=== PATIENT | female | born 1965 | race Caucasian/White ===

== ENCOUNTER 2018-05-21 18:58 | Inpatient (IN) ==
--- NOTE | 2018-05-21 19:32 | Emergency Department Note ---
ED Disposition Clinical Impression: Abscess of left foot, Anemia of chronic disease Rheumatoid arthritis Qualifiers: Rheumatoid arthritis location: unspecified site Rheumatoid factor presence: unspecified presence Qualified Code(s): M06.9 - Rheumatoid arthritis, unspecified Cellulitis Qualifiers: Site of cellulitis: unspecified site Qualified Code(s): L03.90 - Cellulitis, unspecified Decubitus ulcer Qualifiers: Pressure injury location: other site Pressure injury stage: stage 1 Qualified Code(s): L89.891 - Pressure ulcer of other site, stage 1 Disposition: Admitted As Inpatient Condition on Discharge: Fair Time of Disposition: 19:32 - Critical Care Critical Care Time: Yes Attestation: On , the high probability of a clinically significant, sudden or life threatening deterioration of the following system(s) required my full and direct attention, intervention and personal management. The time I documented below is in addition to time spent performing reported procedures but includes the following listed in this critical care notation. Total Critical Care Time: 90 Vital system(s) involved:: Metabolic Failure My critical care processes included: Assessment & monitoring of V/S, Initial and Re-exams, Data Review/Interpretation, Coordinating Care, Medication Orders and management, Documentation Medical Decision Making - Medical Records Medical records reviewed: Yes: I reviewed the patient's medical records. - Jimmy Inquiry Pt receiving controlled substance: No Vital Signs: 05/21/18 18:59 05/21/18 20:29 05/21/18 21:13 Temperature 98.4 F Temperature Source Oral Pulse Rate Pulse Rate [Right Radial] 90 99 H 104 H Respiratory Rate 14 15 18 Blood Pressure Blood Pressure [Right Arm] 115/70 124/103 131/54 Blood Pressure Mean [Right Arm] 85 110 79 Blood Pressure Source Blood Pressure Source [Right Arm] Automatic Cuff Automatic Cuff Automatic Cuff Blood Pressure Position Blood Pressure Position [Right Arm] Sitting Sitting Sitting 02 Sat by Pulse Oximetry 100 98 99 Oxygen Delivery Method Room Air 05/21/18 21:42 Temperature 98.7 F Temperature Source Oral Pulse Rate 103 H Pulse Rate [Right Radial] Respiratory Rate 16 Blood Pressure 128/79 Blood Pressure [Right Arm] Blood Pressure Mean [Right Arm] Blood Pressure Source Automatic Cuff Blood Pressure Source [Right Arm] Blood Pressure Position Sitting Blood Pressure Position [Right Arm] 02 Sat by Pulse Oximetry Oxygen Delivery Method Room Air - Lab Data Lab results reviewed: Yes: I reviewed the patient's lab results. Lab Results 05/21/18 19:15: WBC 4.7 L, RBC 3.81 L, Hgb 9.5 L, Hct 30.5 L, MCV 80.1 L, MCH 25.0 L, MCHC 31.2 L, RDW 16.1, Plt Count 236, MPV 7.3 L, Neut % (Auto) 81.9 H, Lymph % (Auto) 12.3, [place] % (Auto) 3.2, Eos % (Auto) 2.6, Baso % (Auto) 0.1, Neut # (Auto) 3.9, Lymph # (Auto) 0.6 L, [place] # (Auto) 0.2, Eos # (Auto) 0.1, Baso # (Auto) 0.0 05/21/18 19:15: Sodium 139, Potassium 4.4, Chloride 104, Carbon Dioxide 31, Anion Gap 8.4, BUN 13, Creatinine 0.70, Estimated Creat Clear 104, Estimated GFR 89, Est GFR ( Amer) 107, Glucose 113 H, Calcium 9.0, Total Bilirubin 0.4, AST 20, ALT 17, Alkaline Phosphatase 120 H, Troponin I < 0.02, C-Reactive Protein 32.2 H, Total Protein 7.2, Albumin 2.0 L, Globulin 5.2 H, Albumin/ Globulin Ratio 0.4 L, Amylase 17 L, Lipase 50 L, TSH 0.94, Free T4 1.45 05/21/18 19:15: Lactic Acid 1.1 05/21/18 19:15: B-Natriuretic Peptide 265 H 05/21/18 19:15: ESR > 120 H 05/21/18 19:50: Urine Color Yellow, Urine Appearance Clear, Urine pH 6.0, Ur Specific [place] 1.015, Urine Protein Negative, Urine Glucose (UA) Negative, Urine Ketones Negative, Urine Blood 1+, Urine Nitrate Negative, Urine Bilirubin Negative, Urine Urobilinogen 0.2, Ur Leukocyte Esterase 1+ A, Urine RBC 3-5, Urine WBC 3-5, Ur Squamous Epith Cells 3-5, Amorphous Sediment Trace Result diagrams: 05/21/18 19:15 05/21/18 19:15 Orders (Tests/Meds): ED MEDICATIONS Generic Name Dose Route Start Last Admin Trade Name Freq PRN Reason Stop Dose Admin Hydrocodone Bitart/Acetaminophen 1 tab 05/22/18 04:16 05/22/18 04:10 Childs 5/325mg Tablet PO 06/21/18 04:15 1 tab Q6HP PRN Administration Moderate Pain Cyclobenzaprine HCl 10 mg 05/21/18 21:44 05/21/18 23:50 Flexeril 10mg Tablet PO 06/20/18 21:43 10 mg NEEDED PRN Administration Muscle Pain Lisinopril/HCTZ 1 each 05/22/18 09:00 Zestoretic 10/12.5mg Tablet PO 06/21/18 08:59 DAILY DAVID Clindamycin Phosphate 900 mg/ 106 mls @ 100 mls/hr 05/22/18 01:45 05/22/18 01 :21 Sodium Chloride IV 06/04/18 19:44 100 mls/hr Q6H DAVID Administration Protocol Vancomycin HCl 2,500 mg/ 500 mls @ 160 mls/hr 05/22/18 05:00 05/22/18 05:02 Sodium Chloride IV 06/04/18 20:59 160 mls/hr Q8 DAVID Administration Lactated Ringer's 1,000 mls @ 75 mls/hr 05/21/18 21:45 05/21/18 23:49 Lactated Ringer's 1000 Ml Bag IV 06/20/18 21:44 75 mls/hr .[id number] DAVID Administration Miscellaneous 1 each 05/21/18 21:44 05/21/18 22:46 Vancomycin Consult Request * 06/20/18 19:44 Not Given CONSULT PHARMACY DAVID Non-Formulary Medication 150 mg 05/22/18 09:00 Bupropion Hcl [Bupropion Hcl Sr] PO 06/21/18 08:59 DAILY DAVID Non-Formulary Medication 80 mg 05/22/18 09:00 Fluoxetine Hcl [Prozac] PO 06/21/18 08:59 DAILY DAVID Non-Formulary Medication 1,600 mg 05/22/18 21:00 Gabapentin [Gabapentin 800mg Tab] PO 06/21/18 20:59 HS DAVID Sodium Chloride 10 ml 05/21/18 21:44 Saline Flush 10ml Syringe IV 06/20/18 21:43 NEEDED PRN Maintain IV Site Discontinued Medications Generic Name Dose Route Start Last Admin Trade Name Freq PRN Reason Stop Dose Admin Clindamycin Phosphate 900 mg/ 106 mls @ 100 mls/hr 05/21/18 19:45 05/21/18 20 :35 Sodium Chloride IV 06/04/18 19:44 100 mls/hr Q6H DAVID Administration Protocol Vancomycin HCl 2,500 mg/ 500 mls @ 250 mls/hr 05/21/18 21:00 05/21/18 20:43 Sodium Chloride IV 06/04/18 20:59 Not Given Q8 DAVID Protocol Vancomycin HCl 2,500 mg/ 500 mls @ 160 mls/hr 05/21/18 21:00 05/21/18 21:21 Sodium Chloride IV 06/04/18 20:59 160 mls/hr Q8 DAVID Administration Miscellaneous 1 each 05/21/18 19:45 05/21/18 20:35 Vancomycin Consult Request * 06/20/18 19:44 1 each CONSULT PHARMACY DAVID Administration ORDERS Category Date Time Status Blood Culture Stat Micro 05/21/18 19:15 Received Urine Culture Stat Micro 05/21/18 19:50 Received - Physician Consults Physician Consulted: Dr Gipson Time: 19:20 Reason -: Admission, Pt condition Comment/Response: The ultrasound was advised of patient's presentation, findings , she is agreeable with podiatry consultation, would like patient to be on double antibiotic coverage, agreeable with IV vancomycin and IV clindamycin, but also would like left heel x-ray and left lower extremity MRI in the morning. - Reevaluation(s) Time: 19:30 Reevaluation #1: Upon reevaluation patient appears medically stable, advised of results obtained as well as need to hospitalize her in order to initiate IV antibiotics. Patient is clearly having a flareup of her rheumatoid arthritis, given the inflammatory indices, as both CRP and ESR are elevated. Plan is to discontinue the methotrexate, and immunosuppressant, at this time, in order to allow patient to receive IV antibiotics and improve, while off methotrexate. After infectious process is under control the plan is to then attempt to control the rheumatoid arthritis as well, and restart patient on methotrexate. Consideration needs to be given to possible biological agent such as Enbrel, Simponi, Humira, etc. General Adult HPI - General Chief complaint: Weakness Stated complaint: weakness Time Seen by Provider: 05/21/18 19:20 Mode of Arrival: EMS Source of Information: Patient Limitations: No Limitations Description of Symptoms (Recalled from ER Triage Doc. by RN): pt with non- healing leg wounds, edema, complains of general weakness x 2 weeks, worse for 3 days, - History of Present Illness HPI narrative: This is a 52-year-old female patient presented to emergency room with gradual decline, generalized weakness over the past 3 weeks, being unable to get out of bed for the past 4 days due to extreme weakness, also a sore on her left heel, redness on the lower extremities and multiple other sores starting on her low back. Patient is known with rheumatoid arthritis, has been on methotrexate for a long time. Patient has any fever, and chills. Onset (ago): week(s) (3) Location: lower extremity (bilateral) Radiation: non-radiation Severity: moderate Severity scale (1-10): 4 Quality: aching Consistency: intermittent Relieving factors: rest Exacerbating factors: movement Associated symptoms: denies other symptoms Treatments prior to arrival: none - Related Data Home Medications Medication Instructions Recorded Confirmed Cyclobenzaprine HCl 10 mg PO NEEDED PRN 05/21/18 05/21/18 [Cyclobenzaprine 10mg Tab] Fluoxetine HCl [Prozac] 80 mg PO DAILY 05/21/18 05/21/18 Gabapentin [Gabapentin 800mg Tab] 1,600 mg PO HS 05/21/18 05/21/18 Lisinopril/Hydrochlorothiazide 1 tab PO DAILY 05/21/18 05/21/18 [Lisinopril-Hctz 10-12.5 mg Tab] Methotrexate Sodium/Pf 50 mg IJ WEEKLY 05/21/18 05/21/18 [Methotrexate 50 mg/2 ml Vial] buPROPion HCl [Bupropion HCl Sr] 150 mg PO DAILY 05/21/18 05/21/18 Allergies Allergy/AdvReac Type Severity Reaction Status Date / Time No Known Allergies Allergy Unverified 10/25/17 14:19 [facility] History I have reviewed the patient's past medical history: Yes Medical History: Denies:: Cancer, Diabetes Mellitus Type 1, Diabetes Mellitus Type 2, MRSA Other Medical History: Reports: Other (Rheumatoid arthritis) Amputation: No Fractures: No - Social History Smoking Status: Current every day smoker Tobacco Type: cigarettes # Packs/Day (cigarettes): 1 Alcohol Intake: never - Psychiatric History Expresses thoughts of harming self/others: None Suicide Plan Description: No Plan ROS Obtained: Yes All systems reviewed & no additional complaints - Integumentary/Breasts Skin/Breast: Reports system reviewed and no additional complaints, except as docu, Reports as per HPI, Reports lesions, Reports rash Physical Exam - General General appearance: alert, in distress (moderate) - Head Head exam: atraumatic, normocephalic, normal inspection - Neck Neck exam: Absent: meningismus, lymphadenopathy - Chest Chest inspection: Present: normal inspection, symmetric chest wall rise. Absent : tenderness - Respiratory Respiratory exam: Present: normal lung sounds bilaterally. Absent: respiratory distress - Cardiovascular Cardiovascular exam: Present: regular rate, normal rhythm. Absent: JVD - Abdominal Exam Abdominal exam: Present: soft, normal bowel sounds. Absent: distention, tenderness, guarding - Expanded Lower Extremity Exam Left Lower leg exam: Present: tenderness, swelling, erythema Foot/toe exam: Present: tenderness (left heel), swelling (left heel), erythema ( left heel), calcaneal tenderness (left) Right Lower leg exam: Present: tenderness, swelling, erythema - Back Exam Back exam: Present: normal inspection. Absent: tenderness - Neurological Exam Neurological exam: Present: alert, oriented X3, CN II-XII intact - Psychiatric Psychiatric exam: Present: depressed, anxious, flat affect - Skin Skin exam: Present: warm, dry, normal color, rash (Presacral rash, consistent with decubitus ulcers, bilateral lower extremities erythema, warmth consistent with cellulitis, left heel soft tissue swelling, with area of central fluctuance consistent with an abscess) - Lymphatic Lymphatic Findings: no adenopathy
[2018-05-21 20:00] LABS: Basophils % 0.1 % (0.1-2.0); Eosinophils # 0.1 K/mm3 (0.0-0.4); Eosinophils % 2.6 % (0.1-12.0); Hematocrit 30.5 % (37.0-47.0); Hemoglobin 9.5 g/dL (12.2-16.2); Lymphocytes # 0.6 K/mm3 (0.7-4.5); Lymphocytes % 12.3 K/mm3 (10-50); Mean Corpuscular HGB Conc 31.2 g/dL (31.8-35.4); Mean Corpuscular Volume 80.1 fl (81-99); Mean Platelet Volume 7.3 fl (7.4-10.4); Monocytes # 0.2 K/mm3 (0.1-1.0); Monocytes % 3.2 % (1.7-9.3); Neutrophils # 3.9 K/mm3 (1.8-7.8); Neutrophils % 81.9 % (37.0-80.0); Platelet Count 236 K/mm3 (142-424); Red Blood Count 3.81 M/mm3 (4.20-5.40); Red Cell Distribution Width 16.1 % (11.5-17.5); White Blood Count 4.7 K/mm3 (4.8-10.8)
[2018-05-21 20:04] LABS: Microscopic, Urine URINE MICROSCOPIC (MICROSCOPIC)
[2018-05-21 20:05] LABS: Appearance,Urine CLEAR (Clear); Bilirubin,Urine Negative (Negative); Blood, Urine 1+ (Negative); Color,Urine YELLOW (Yellow); Glucose,Urine (UA) Negative (Negative); Ketones,Urine Negative (Negative); Leukocyte Esterase,Urine 1+ (Negative); Protein,Urine Negative (Negative); Specific Gravity, Urine 1.015 (1.005-1.030); Urobilinogen,Urine 0.2 EU/dl (0.2)
[2018-05-21 20:07] LABS: Amorphous Sediment,Urine Trace /lpf
[2018-05-21 20:20] LABS: Alanine Aminotransferase 17 U/L (12-78); Albumin/Globulin Ratio 0.4 (1.1-1.8); Alkaline Phosphatase 120 U/L (46-116); Amylase 17 U/L (25-125); Anion Gap 8.4 mEq/L (5-15); Aspartate Amino Transferase 20 U/L (15-37); Bilirubin,Total 0.4 mg/dL (0.2-1.0); Blood Urea Nitrogen 13 mg/dL (7-18); Carbon Dioxide 31 mmol/L (21.0-32.0); Chloride 104 mmol/L (98-107); Free T4 (Free Thyroxine) 1.45 ng/dl (0.76-1.46); Globulin 5.2 gm/dl (1.3-3.2); Glucose 113 mg/dL (74-106); Lipase 50 u/L (73-393); Potassium 4.4 mmoL/L (3.5-5.1); Sodium 139 mmol/L (136-145); Thyroid Stimulating Hormone 0.94 uIU/ml (0.358-3.740); Total Protein,Serum 7.2 gm/dL (6.4-8.2)
[2018-05-21 20:21] LABS: C-Reactive Protein 32.2 mg/L (0.0-0.9)
--- NOTE | 2018-05-22 08:40 | Pharmacy Consult Notes ---
[facility] Pharmacy VTE Monitoring - Patient Demographics Admission date: 05/21/18 Report Date: 05/22/18 Time: 08:40 Allergies/Adverse Reactions: Patient Allergies No Known Allergies Allergy (Unverified 10/25/17 14:19) Height: 1.78 m Weight: 163.293 kg Patient Problems: Current Active Problems Rheumatoid arthritis (Acute) Abscess of left foot (Acute) Cellulitis (Acute) Decubitus ulcer (Acute) Anemia of chronic disease (Acute) - VTE Risk Labs: VTE Related Lab Results Hgb 9.5 g/dL (12.2-16.2) L 05/21/18 19:15 Hct 30.5 % (37.0-47.0) L 05/21/18 19:15 Plt Count 236 K/mm3 (142-424) 05/21/18 19:15 BUN 13 mg/dL (7-18) 05/21/18 19:15 Creatinine 0.70 mg/dL (0.55-1.02) 05/21/18 19:15 Estimated Creat Clear 104 mL/min (0-300) 05/21/18 19:15 Was VTE Risk Assessment Performed: Yes VTE Score: 3 VTE Risk Level: Low Risk - Prophylaxis VTE Prophylaxis Ordered?: Yes Types of VTE Prophylaxis: TEDS Knee High Location of Applied Device: Bilateral Lower Extremeties - VTE Diagnosis Confirmed Treatment or plan recommended: Continue Current Treatment
--- NOTE | 2018-05-22 09:22 | Consult Report ---
*Admission Date: 05/21/18 *Chief complaint: B/L HEEL PAIN, ABSCESS *History of present illness: Ms. Gómez is a 52 y/o obese female patient who presented to ED with gradual decline, generalized weakness over the past 3 weeks, being unable to get out of bed for the past 4 days due to extreme weakness. She also c /o a sore on her left heel, redness on the lower extremities and multiple other sores starting on her low back. She reports pain to both heels, left worse than the right. Patient reports left leg ulcer healed in past, but reopened. Patient is known with rheumatoid arthritis, has been on methotrexate. Patient reports chills on and off x 2-3 days. She denies N/V, SOB/CP. Patient is laying in bed and has not walker > 3 weeks. Review of Systems - Review of Systems Review of systems:: unable to obtain - Constitutional Reports anorexia, Reports fatigue, Reports weakness - Eyes Denies change in vision - ENT Denies change in voice - *Cardiovascular Reports leg sores, Reports fast heart rate, Denies chest pain - *Respiratory Denies cough, Denies wheezing - *Gastrointestinal Denies abdominal pain, Denies vomiting - *Genitourinary Denies abnormal periods - *Musculoskeletal Reports back pain, Reports muscle weakness - Integumentary/Breasts Reports skin ulcer (left lateral leg, decubitus) - *Neurologic Reports weakness, Denies behavioral changes, Denies tingling/numbness/burning sensations - Hematologic/Lymphatic Reports easy bruising - Allergic/Immunologic Denies wheezing [facility] History I have reviewed the patient's past medical history: Yes Medical History: Reports:: Hypertension Denies:: Cancer, Diabetes Mellitus Type 1, Diabetes Mellitus Type 2, MRSA, Peripheral Artery Disease Other Medical History: Reports: Other (Rheumatoid Arthritis) Laterality Cases: Left: Arthroscopy Knee Other Surgeries: Yes: Tubal Ligation Amputation: No Fractures: No - *Social History Educational Level: Completed High School Smoking Status: Current every day smoker Tobacco Type: cigarettes # Packs/Day (cigarettes): 1 #Yrs smoked (if former smoker): 30 Alcohol Intake: never Occupational Status: disabled Housing: house Household Members: spouse - Psychiatric History Expresses thoughts of harming self/others: None Suicide Plan Description: No Plan *Family Hx:: Cancer, Coronary Artery Disease, Diabetes Meds Home Medications Medication Instructions Recorded Confirmed Type Cyclobenzaprine HCl 10 mg PO NEEDED PRN 05/21/18 05/21/18 History [Cyclobenzaprine 10mg Tab] Fluoxetine HCl [Prozac] 80 mg PO DAILY 05/21/18 05/21/18 History Gabapentin [Gabapentin 800mg Tab] 1,600 mg PO HS 05/21/18 05/21/18 History Lisinopril/Hydrochlorothiazide 1 tab PO DAILY 05/21/18 05/21/18 History [Lisinopril-Hctz 10-12.5 mg Tab] Methotrexate Sodium/Pf 50 mg IJ WEEKLY 05/21/18 05/21/18 History [Methotrexate 50 mg/2 ml Vial] buPROPion HCl [Bupropion HCl Sr] 150 mg PO DAILY 05/21/18 05/21/18 History Allergies Allergy/AdvReac Type Severity Reaction Status Date / Time No Known Allergies Allergy Unverified 10/25/17 14:19 Exam Vital signs and Labs for Last 24 Hours: Temp Pulse Resp BP Pulse Ox 98.5 F 93 H 22 120/56 99 05/22/18 07:24 05/22/18 07:24 05/22/18 07:24 05/22/18 07:24 05/22/18 07:24 Laboratory Results - last 24 hr 05/21/18 19:15: WBC 4.7 L, RBC 3.81 L, Hgb 9.5 L, Hct 30.5 L, MCV 80.1 L, MCH 25.0 L, MCHC 31.2 L, RDW 16.1, Plt Count 236, MPV 7.3 L, Neut % (Auto) 81.9 H, Lymph % (Auto) 12.3, [place] % (Auto) 3.2, Eos % (Auto) 2.6, Baso % (Auto) 0.1, Neut # (Auto) 3.9, Lymph # (Auto) 0.6 L, [place] # (Auto) 0.2, Eos # (Auto) 0.1, Baso # (Auto) 0.0 05/21/18 19:15: Sodium 139, Potassium 4.4, Chloride 104, Carbon Dioxide 31, Anion Gap 8.4, BUN 13, Creatinine 0.70, Estimated Creat Clear 104, Estimated GFR 89, Est GFR ( Amer) 107, Glucose 113 H, Calcium 9.0, Total Bilirubin 0.4, AST 20, ALT 17, Alkaline Phosphatase 120 H, Troponin I < 0.02, C-Reactive Protein 32.2 H, Total Protein 7.2, Albumin 2.0 L, Globulin 5.2 H, Albumin/ Globulin Ratio 0.4 L, Amylase 17 L, Lipase 50 L, TSH 0.94, Free T4 1.45 05/21/18 19:15: Lactic Acid 1.1 05/21/18 19:15: B-Natriuretic Peptide 265 H 05/21/18 19:15: ESR > 120 H 05/21/18 19:50: Urine Color Yellow, Urine Appearance Clear, Urine pH 6.0, Ur Specific [place] 1.015, Urine Protein Negative, Urine Glucose (UA) Negative, Urine Ketones Negative, Urine Blood 1+, Urine Nitrate Negative, Urine Bilirubin Negative, Urine Urobilinogen 0.2, Ur Leukocyte Esterase 1+ A, Urine RBC 3-5, Urine WBC 3-5, Ur Squamous Epith Cells 3-5, Amorphous Sediment Trace I & O for Last 24 hours: Intake & Output 05/19/18 05/20/18 05/21/18 05/22/18 11:59 11:59 11:59 11:59 Intake Total 732 / 732 Balance 732 / 732 Weight 360 lb - Constitutional no acute distress - *Routine HEENT Exam Head: Present: normocephalic - *Routine Neck Exam Present: supple. Absent: JVD - *Routine Respiratory Exam Absent: respiratory distress - *Routine Cardiovascular Exam Absent: JVD - *Routine Abdominal Exam Present: soft - *Routine Rectal Exam Patient deferred: visual exam - *Routine Exam Patient deferred: external exam - *Routine Extremities Exam Present: edema, pulses intact, normal capillary refill, tenderness. Absent: amputation - *Routine Skin Exam Present: erythema, dry, wounds. Absent: gangrene - *Routine Neurological Exam Present: alert, moving all extremities - Detailed Lower Extremity Exam Ankle: Left wound Foot/Toes: Left crepitus, Left wound (L lateral ulcer), Bilateral swelling, Bilateral tenderness (B/L HEEL ) Bottom foot image: 1 - pain to R heel 2 - Pain to left heel, boggy, erythema, crepitus Comments: CFT wnl b/l. Skin temp warm. Palpable PT pulses b/l. The b/l LE are dry. There is an open wound noted to the left lateral leg, measuring ~6 x 2.5cm, superficial. Does not tunnel or track deeply. No pain to palpation. Minimal bessie wound erythema. B/L heel erythema, warmth consistent with cellulitis, and pain to palpation. The heels both have soft tissue swelling, with area of central fluctuance like blister, left worse than the right. There is no pain to the dorsal or plantar foot. Muscle strength decreased from lack of use and large body habitus. Results - Labs Result Diagrams: 05/21/18 19:15 05/21/18 19:15 Labs: Abnormal lab results 05/21/18 05/21/18 05/21/18 Range/Units 19:15 19:15 19:15 WBC 4.7 L (4.8-10.8) K/mm3 RBC 3.81 L (4.20-5.40) M/mm3 Hgb 9.5 L (12.2-16.2) g/dL Hct 30.5 L (37.0-47.0) % MCV 80.1 L (81-99) fl MCH 25.0 L (27.0-31.2) pg MCHC 31.2 L (31.8-35.4) g/dL MPV 7.3 L (7.4-10.4) fl Neut % (Auto) 81.9 H (37.0-80.0) % Lymph # (Auto) 0.6 L (0.7-4.5) K/mm3 ESR (0-20) mm/hr Glucose 113 H (74-106) mg/dL Alkaline Phosphatase 120 H (46-116) U/L C-Reactive Protein 32.2 H (0.0-0.9) mg/L B-Natriuretic Peptide 265 H (0-100) pg/mL Albumin 2.0 L (3.4-5.0) gm/dL Globulin 5.2 H (1.3-3.2) gm/dl Albumin/Globulin Ratio 0.4 L (1.1-1.8) Amylase 17 L (25-125) U/L Lipase 50 L (73-393) u/L Ur Leukocyte Esterase (Negative) 05/21/18 05/21/18 Range/Units 19:15 19:50 WBC (4.8-10.8) K/mm3 RBC (4.20-5.40) M/mm3 Hgb (12.2-16.2) g/dL Hct (37.0-47.0) % MCV (81-99) fl MCH (27.0-31.2) pg MCHC (31.8-35.4) g/dL MPV (7.4-10.4) fl Neut % (Auto) (37.0-80.0) % Lymph # (Auto) (0.7-4.5) K/mm3 ESR > 120 H (0-20) mm/hr Glucose (74-106) mg/dL Alkaline Phosphatase (46-116) U/L C-Reactive Protein (0.0-0.9) mg/L B-Natriuretic Peptide (0-100) pg/mL Albumin (3.4-5.0) gm/dL Globulin (1.3-3.2) gm/dl Albumin/Globulin Ratio (1.1-1.8) Amylase (25-125) U/L Lipase (73-393) u/L Ur Leukocyte Esterase 1+ A (Negative) H & H 05/21/18 Range/Units 19:15 Hgb 9.5 L (12.2-16.2) g/dL Hct 30.5 L (37.0-47.0) % All other labs normal. - Diagnostic results Ankle/Foot x-ray: image reviewed (heel spur, no soft tissue gas noted) Ankle/Foot MRI: pending Assessment and Plan (1) Cellulitis Current visit: Yes Status: Acute Qualifiers: Site of cellulitis: unspecified site Qualified Code(s): L03.90 - Cellulitis , unspecified Category: Medical Code(s): L03.90 - Cellulitis, unspecified (2) Pressure ulcer of left heel, stage 2 Current visit: Yes Status: Acute Category: Medical Code(s): L89.622 - Pressure ulcer of left heel, stage 2 (3) Pressure ulcer of right heel, stage 2 Current visit: Yes Status: Acute Category: Medical Code(s): L89.612 - Pressure ulcer of right heel, stage 2 (4) Morbid obesity Current visit: Yes Status: Acute Category: Medical Code(s): E66.01 - Morbid (severe) obesity due to excess calories (5) Abscess of left foot Current visit: Yes Status: Acute Category: Medical Code(s): L02.612 - Cutaneous abscess of left foot (6) Rheumatoid arthritis Current visit: Yes Status: Acute Qualifiers: Rheumatoid arthritis location: unspecified site Rheumatoid factor presence : unspecified presence Qualified Code(s): M06.9 - Rheumatoid arthritis, unspecified Category: Medical Code(s): M06.9 - Rheumatoid arthritis, unspecified - Assessment and plan all Dx Assessment and Plan for all problems:: B/L HEEL PRESSURE ULCERS, STAGE 2 POSSIBLE ABSCESS OF HEEL LEFT LEG ULCER I discussed with the patient the treatment for abscess is surgery for incision and drainage. Await MRI results as new and increasing pain to the right heel, not just the left. Betadine was used to clean the left heel then 15 blade was used to pop the left heel and a wound culture was taken. 1. B/L MRI w/ and with out contrast to evaluate for abscess 2. EKG, Chest xray for medical clearance 3. Wound culture left heel 4. NPO 5. Likely plan for surgery this afternoon 6. Consent surgery: b/l likely foot incision and drainage, left leg wound debridement depending on MRI
--- NOTE | 2018-05-22 09:41 | History & Physical Report ---
*Admission Date: 05/21/18 <HebertValentineDebra 05/22/18 09:43> *History of present illness: Mrs. Mosqueda is a 52 y/o female patient who presented to ED with gradual decline, generalized weakness over the past 3 weeks. She has been unable to get out of bed for the past 4 days due to extreme weakness. She has a sore on her left heel, redness on the lower extremities and multiple other sores starting on her low back. Patient is known to have rheumatoid arthritis and has been on methotrexate for a long time. Patient denies fever, and chills. Her family insisted that she come to the emergency room last evening. This a.m. patient denies pain. <Debra Hebert 05/22/18 12:30> [facility] History Medical History: Reports:: Hypertension Denies:: Atherosclerotic Heart Disease, Cancer, Congestive Heart Failure, Chronic Obstructive Pulmonary Disease (COPD), Diabetes Mellitus Type 1, Diabetes Mellitus Type 2, MRSA <Debra Hebert 05/22/18 12:30> Other Medical History: Reports: Anemia, Arthritis, Other (Rheumatoid arthritis) <EmileeDebra 05/22/18 12:30> Comment: leg and foot pain <Debra Hebert 05/22/18 12:30> Laterality Cases: Left: Arthroscopy Knee <Debra Hebert 05/22/18 09:43> Other Surgeries: Yes: Tubal Ligation <Debra Hebert 05/22/18 09:43> Amputation: No <Debra Hebert 05/22/18 09:43> Fractures: No <Debra Hebert 05/22/18 09:43> - *Social History Educational Level: Completed High School <Debra Hebert 05/22/18 09:43> Smoking Status: Current every day smoker <Debra Hebert 05/22/18 09:43> Tobacco Type: cigarettes <Debra Hebert 05/22/18 09:43> # Packs/Day (cigarettes): 1 <Debra Hebert 05/22/18 09:43> #Yrs smoked (if former smoker): 30 <Debra Hebert 05/22/18 09:43> Alcohol Intake: never <Debra Hebert 05/22/18 09:43> Occupational Status: disabled, 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) <Debra Hebert 05/22/18 12:30> Housing: house <Debra Hbeert 05/22/18 09:43> Household Members: spouse <Debra Hebert 05/22/18 09:43> - Psychiatric History Expresses thoughts of harming self/others: None <Debra Hebert 05/22/18 09: 43> Suicide Plan Description: No Plan <Debra Hebert 05/22/18 09:43> Pschychiatric History:: Reports:: Depression <Debra Hebert 05/22/18 12:30> *Family Hx:: Cancer, Coronary Artery Disease, Diabetes <Debra Hebert 09:43> Review of Systems - Constitutional Denies fever(s), Denies headache(s) <Debra Hebert 05/22/18 12:30> - ENT Denies ear pain, Denies sore throat <Debra Hebert 05/22/18 12:30> - *Cardiovascular Denies chest pain <Debra Hebert 05/22/18 12:30> - *Respiratory Reports shortness of breath with activity, Denies chest congestion, Denies cough <Debra Hebert 05/22/18 12:30> - *Gastrointestinal Denies abdominal pain, Denies change in bowel habits, Denies change in stools, Denies constipation, Denies nausea, Denies vomiting <Debra Hebert 05/22/18 12:30> - *Genitourinary Reports painful urination <Debra Hebert 05/22/18 12:30> - *Musculoskeletal Reports joint pain, Reports joint swelling, Reports muscle weakness <Debra Hebert 05/22/18 12:30> Comments: knee pain; right foot pain and cannot stand to be touched on plantar aspect <Debra Hebert 05/22/18 12:30> - *Neurologic Denies seizure-like activity, Denies dizziness, Denies headache(s) <Hebert, Debra 05/22/18 12:30> Meds Home Medications Medication Instructions Recorded Confirmed Type Cyclobenzaprine HCl 10 mg PO Q8HP PRN 05/21/18 05/22/18 History [Cyclobenzaprine 10mg Tab] Fluoxetine HCl [Prozac] 80 mg PO DAILY 05/21/18 05/21/18 History Gabapentin [Gabapentin 800mg Tab] 1 - 2 tab PO HS 05/21/18 05/22/18 History Methotrexate Sodium/Pf 25 mg IJ WEEKLY 05/21/18 05/22/18 History [Methotrexate 50 mg/2 ml Vial] buPROPion HCl [Bupropion HCl Sr] 150 mg PO DAILY 05/21/18 05/21/18 History Lisinopril/Hydrochlorothiazide 1 tab PO DAILY 05/22/18 05/22/18 History [Lisinopril-Hctz 20-12.5 mg Tab] RX: Amitriptyline HCl [Elavil 25mg 1 - 2 tab PO HS 05/22/18 05/22/18 History tablet] <Augusta Gipson 05/22/18 15:19> Allergies Allergy/AdvReac Type Severity Reaction Status Date / Time No Known Allergies Allergy Unverified 10/25/17 14:19 <[facility] 05/22/18 15:19> Exam Vital signs and Labs for Last 24 Hours: Temp Pulse Resp BP Pulse Ox 98.5 F 93 H 18 120/56 99 05/22/18 07:24 05/22/18 07:24 05/22/18 13:46 05/22/18 07:24 05/22/18 07:24 Laboratory Results - last 24 hr 05/21/18 19:15: WBC 4.7 L, RBC 3.81 L, Hgb 9.5 L, Hct 30.5 L, MCV 80.1 L, MCH 25.0 L, MCHC 31.2 L, RDW 16.1, Plt Count 236, MPV 7.3 L, Neut % (Auto) 81.9 H, Lymph % (Auto) 12.3, [place] % (Auto) 3.2, Eos % (Auto) 2.6, Baso % (Auto) 0.1, Neut # (Auto) 3.9, Lymph # (Auto) 0.6 L, [place] # (Auto) 0.2, Eos # (Auto) 0.1, Baso # (Auto) 0.0 05/21/18 19:15: Sodium 139, Potassium 4.4, Chloride 104, Carbon Dioxide 31, Anion Gap 8.4, BUN 13, Creatinine 0.70, Estimated Creat Clear 104, Estimated GFR 89, Est GFR ( Amer) 107, Glucose 113 H, Calcium 9.0, Total Bilirubin 0.4, AST 20, ALT 17, Alkaline Phosphatase 120 H, Troponin I < 0.02, C-Reactive Protein 32.2 H, Total Protein 7.2, Albumin 2.0 L, Globulin 5.2 H, Albumin/ Globulin Ratio 0.4 L, Amylase 17 L, Lipase 50 L, TSH 0.94, Free T4 1.45 05/21/18 19:15: Lactic Acid 1.1 05/21/18 19:15: B-Natriuretic Peptide 265 H 05/21/18 19:15: ESR > 120 H 05/21/18 19:50: Urine Color Yellow, Urine Appearance Clear, Urine pH 6.0, Ur Specific [place] 1.015, Urine Protein Negative, Urine Glucose (UA) Negative, Urine Ketones Negative, Urine Blood 1+, Urine Nitrate Negative, Urine Bilirubin Negative, Urine Urobilinogen 0.2, Ur Leukocyte Esterase 1+ A, Urine RBC 3-5, Urine WBC 3-5, Ur Squamous Epith Cells 3-5, Amorphous Sediment Trace 05/22/18 09:40: WBC 2.9 L D, RBC 3.44 L, Hgb 8.3 L D, Hct 27.6 L, MCV 80.5 L, MCH 24.1 L, MCHC 30.0 L, RDW 16.4, Plt Count 208, MPV 8.1, Neut % (Auto) 65.8, Lymph % (Auto) 25.7, [place] % (Auto) 5.0, Eos % (Auto) 3.4, Baso % (Auto) 0.1, Neut # (Auto) 1.9, Lymph # (Auto) 0.7, [place] # (Auto) 0.2, Eos # (Auto) 0.1, Baso # (Auto) 0.0 05/22/18 09:40: Hemoglobin A1c 7.2 H 05/22/18 09:40: Triglycerides 123, Cholesterol 152, LDL Cholesterol 100, VLDL Cholesterol 25, HDL Cholesterol 27 L, Cholesterol/HDL Ratio 5.6 H <Sound,Augusta - 05/22/18 15:19> Temp Pulse Resp BP Pulse Ox 98.5 F 93 H 22 120/56 99 05/22/18 07:24 05/22/18 07:24 05/22/18 07:24 05/22/18 07:24 05/22/18 07:24 Laboratory Results - last 24 hr 05/21/18 19:15: WBC 4.7 L, RBC 3.81 L, Hgb 9.5 L, Hct 30.5 L, MCV 80.1 L, MCH 25.0 L, MCHC 31.2 L, RDW 16.1, Plt Count 236, MPV 7.3 L, Neut % (Auto) 81.9 H, Lymph % (Auto) 12.3, [place] % (Auto) 3.2, Eos % (Auto) 2.6, Baso % (Auto) 0.1, Neut # (Auto) 3.9, Lymph # (Auto) 0.6 L, [place] # (Auto) 0.2, Eos # (Auto) 0.1, Baso # (Auto) 0.0 05/21/18 19:15: Sodium 139, Potassium 4.4, Chloride 104, Carbon Dioxide 31, Anion Gap 8.4, BUN 13, Creatinine 0.70, Estimated Creat Clear 104, Estimated GFR 89, Est GFR ( Amer) 107, Glucose 113 H, Calcium 9.0, Total Bilirubin 0.4, AST 20, ALT 17, Alkaline Phosphatase 120 H, Troponin I < 0.02, C-Reactive Protein 32.2 H, Total Protein 7.2, Albumin 2.0 L, Globulin 5.2 H, Albumin/ Globulin Ratio 0.4 L, Amylase 17 L, Lipase 50 L, TSH 0.94, Free T4 1.45 05/21/18 19:15: Lactic Acid 1.1 05/21/18 19:15: B-Natriuretic Peptide 265 H 05/21/18 19:15: ESR > 120 H 05/21/18 19:50: Urine Color Yellow, Urine Appearance Clear, Urine pH 6.0, Ur Specific [place] 1.015, Urine Protein Negative, Urine Glucose (UA) Negative, Urine Ketones Negative, Urine Blood 1+, Urine Nitrate Negative, Urine Bilirubin Negative, Urine Urobilinogen 0.2, Ur Leukocyte Esterase 1+ A, Urine RBC 3-5, Urine WBC 3-5, Ur Squamous Epith Cells 3-5, Amorphous Sediment Trace <Debra Hebert 05/22/18 09:43> I & O for Last 24 hours: Intake & Output 05/20/18 05/21/18 05/22/18 05/23/18 11:59 11:59 11:59 11:59 Intake Total 732 / 732 Balance 732 / 732 Weight 360 lb 359 lb 15.991 oz <Augusta Gipson 05/22/18 15:19> Intake & Output 05/19/18 05/20/18 05/21/18 05/22/18 11:59 11:59 11:59 11:59 Intake Total 732 / 732 Balance 732 / 732 Weight 360 lb <Debra Hebert 05/22/18 09:43> Microbiology Reports for the Last 24 Hours: Microbiology 05/22/18 08:06 Foot,Left Gram Stain - Final <Augusta Gipson 05/22/18 15:19> Radiology Reports for the Last 24 Hours: 05/21/2018 chest x-ray IMPRESSION: Negative chest, no acute finding 05/21/2018 left foot x-ray IMPRESSION: Prominent diffuse soft tissue swelling of the foot consistent with edema and/or cellulitis, prominent calcaneal spur as noted, no obvious findings to suggest abscess of the heel soft tissues <Debra Hebert 05/22/18 09:43> - Constitutional no acute distress, morbidly obese <Debra Hebert 05/22/18 12:30> Comments: appears comfortable lying in bed talking with her daughter <Debra Hebert 05/22/18 12:30> - *Routine HEENT Exam Head: Present: normocephalic <Debra Hebert 05/22/18 12:30> Eye: Present: PERRL. Absent: conjunctival icterus, scleral injection <Debra Hebert 05/22/18 12:30> ENT: Present: mucous membranes moist, oropharynx clear <Debra Hebert 12:30> - *Routine Neck Exam Absent: lymphadenopathy, thyromegaly <Debra Hebert 05/22/18 12:30> - *Routine Respiratory Exam Present: CTA bilaterally (A&P) <Debra Hebert 05/22/18 12:30> - *Routine Cardiovascular Exam Present: RRR <Debra Hebert 05/22/18 12:30> - *Routine Abdominal Exam Present: soft, normoactive bowel sounds. Absent: tenderness, guarding < Debra Hebert 05/22/18 12:30> - *Routine Extremities Exam Present: edema (bilateral), pulses intact, normal capillary refill <Debra Hebert 05/22/18 12:43> Comments: bilateral leg edema with scattered scabbing; bilateral heels with erythema and are boggy <Debra Hebert 05/22/18 12:43> - *Routine Skin Exam Comments: left outer lower leg with open wound-6x2cm; erythemic and dry at present; left heel boggy <Debra Hebert 05/22/18 12:36> - *Routine Neurological Exam Present: alert, oriented X3 <Debra Hebert 05/22/18 12:43> H&P: Result - Labs Labs: Short CBC 05/21/18 05/22/18 Range/Units 19:15 09:40 WBC 4.7 L 2.9 L D (4.8-10.8) K/mm3 Hgb 9.5 L 8.3 L D (12.2-16.2) g/dL Hct 30.5 L 27.6 L (37.0-47.0) % Plt Count 236 208 (142-424) K/mm3 BMP 05/21/18 19:15 Sodium 139 Potassium 4.4 Chloride 104 Carbon Dioxide 31 BUN 13 Creatinine 0.70 Glucose 113 H Calcium 9.0 Cardiac Enzymes 05/21/18 Range/Units 19:15 Troponin I < 0.02 (0.00-0.06) ng/ml Liver Function 05/21/18 Range/Units 19:15 Total Bilirubin 0.4 (0.2-1.0) mg/dL AST 20 (15-37) U/L ALT 17 (12-78) U/L Alkaline Phosphatase 120 H (46-116) U/L Albumin 2.0 L (3.4-5.0) gm/dL Urine 05/21/18 Range/Units 19:50 Urine Color Yellow (Yellow) Urine Appearance Clear (Clear) Urine pH 6.0 (5.0-8.5) Ur Specific [place] 1.015 (1.005-1.030) Urine Protein Negative (Negative) Urine Glucose (UA) Negative (Negative) <Durga Gipsona - 05/22/18 15:19> Short CBC 05/21/18 Range/Units 19:15 WBC 4.7 L (4.8-10.8) K/mm3 Hgb 9.5 L (12.2-16.2) g/dL Hct 30.5 L (37.0-47.0) % Plt Count 236 (142-424) K/mm3 BMP 05/21/18 19:15 Sodium 139 Potassium 4.4 Chloride 104 Carbon Dioxide 31 BUN 13 Creatinine 0.70 Glucose 113 H Calcium 9.0 Cardiac Enzymes 05/21/18 Range/Units 19:15 Troponin I < 0.02 (0.00-0.06) ng/ml Liver Function 05/21/18 Range/Units 19:15 Total Bilirubin 0.4 (0.2-1.0) mg/dL AST 20 (15-37) U/L ALT 17 (12-78) U/L Alkaline Phosphatase 120 H (46-116) U/L Albumin 2.0 L (3.4-5.0) gm/dL Urine 05/21/18 Range/Units 19:50 Urine Color Yellow (Yellow) Urine Appearance Clear (Clear) Urine pH 6.0 (5.0-8.5) Ur Specific [place] 1.015 (1.005-1.030) Urine Protein Negative (Negative) Urine Glucose (UA) Negative (Negative) <Debra Hebert - 05/22/18 09:43> Assessment and Plan - Assessment and plan all Dx Assessment and Plan for all problems:: I agree with above history and physical. wound care consulted, will await MRI and continue IV abx in the meantime continue PT <LeonelaAugusta - 05/22/18 15:19> will do A1C and lipids; to be seen by Dr. Villar and PT; home meds have been started; is on Clindamycin IV <Debra Hebert - 05/22/18 12:43>
[2018-05-22 09:54] LABS: Eosinophils # 0.1 K/mm3 (0.0-0.4); Mean Corpuscular Hemoglobin 24.1 pg (27.0-31.2); Mean Corpuscular Volume 80.5 fl (81-99); Monocytes # 0.2 K/mm3 (0.1-1.0)
[2018-05-22 10:03] LABS: Basophils % 0.1 % (0.1-2.0); Eosinophils % 3.4 % (0.1-12.0); Hematocrit 27.6 % (37.0-47.0); Lymphocytes # 0.7 K/mm3 (0.7-4.5); Lymphocytes % 25.7 K/mm3 (10-50); Mean Platelet Volume 8.1 fl (7.4-10.4); Neutrophils # 1.9 K/mm3 (1.8-7.8); Neutrophils % 65.8 % (37.0-80.0); Platelet Count 208 K/mm3 (142-424); Red Blood Count 3.44 M/mm3 (4.20-5.40); Red Cell Distribution Width 16.4 % (11.5-17.5); White Blood Count 2.9 K/mm3 (4.8-10.8)
[2018-05-22 10:05] LABS: Chol/HDL Ratio 5.6 (1-3.5)
[2018-05-22 10:13] LABS: Hemoglobin 8.3 g/dL (12.2-16.2)
--- NOTE | 2018-05-22 10:13 | Pharmacy Consult Notes ---
- Pharmacy Consult Date: 05/22/18 Time: 10:11 Referring provider: DR. CHOWDHURY Reason for Consult:: VANCOMYCIN DOSING Allergies and ADEs:: Allergies Allergy/AdvReac Type Severity Reaction Status Date / Time No Known Allergies Allergy Unverified 10/25/17 14:19 Home Medications:: Home Medications Medication Instructions Recorded Confirmed Type Cyclobenzaprine HCl 10 mg PO Q8HP PRN 05/21/18 05/22/18 History [Cyclobenzaprine 10mg Tab] Fluoxetine HCl [Prozac] 80 mg PO DAILY 05/21/18 05/21/18 History Gabapentin [Gabapentin 800mg Tab] 1 - 2 tab PO HS 05/21/18 05/22/18 History Methotrexate Sodium/Pf 50 mg IJ WEEKLY 05/21/18 05/21/18 History [Methotrexate 50 mg/2 ml Vial] buPROPion HCl [Bupropion HCl Sr] 150 mg PO DAILY 05/21/18 05/21/18 History Amitriptyline HCl [Elavil 25mg 1 - 2 tab PO HS 05/22/18 05/22/18 History tablet] Lisinopril/Hydrochlorothiazide 1 tab PO DAILY 05/22/18 05/22/18 History [Lisinopril-Hctz 20-12.5 mg Tab] Height: 1.78 m Weight: 163.293 kg Laboratory Results:: Laboratory Results - last 24 hr 05/21/18 19:15: WBC 4.7 L, RBC 3.81 L, Hgb 9.5 L, Hct 30.5 L, MCV 80.1 L, MCH 25.0 L, MCHC 31.2 L, RDW 16.1, Plt Count 236, MPV 7.3 L, Neut % (Auto) 81.9 H, Lymph % (Auto) 12.3, [place] % (Auto) 3.2, Eos % (Auto) 2.6, Baso % (Auto) 0.1, Neut # (Auto) 3.9, Lymph # (Auto) 0.6 L, [place] # (Auto) 0.2, Eos # (Auto) 0.1, Baso # (Auto) 0.0 05/21/18 19:15: Sodium 139, Potassium 4.4, Chloride 104, Carbon Dioxide 31, Anion Gap 8.4, BUN 13, Creatinine 0.70, Estimated Creat Clear 104, Estimated GFR 89, Est GFR ( Amer) 107, Glucose 113 H, Calcium 9.0, Total Bilirubin 0.4, AST 20, ALT 17, Alkaline Phosphatase 120 H, Troponin I < 0.02, C-Reactive Protein 32.2 H, Total Protein 7.2, Albumin 2.0 L, Globulin 5.2 H, Albumin/ Globulin Ratio 0.4 L, Amylase 17 L, Lipase 50 L, TSH 0.94, Free T4 1.45 05/21/18 19:15: Lactic Acid 1.1 05/21/18 19:15: B-Natriuretic Peptide 265 H 05/21/18 19:15: ESR > 120 H 05/21/18 19:50: Urine Color Yellow, Urine Appearance Clear, Urine pH 6.0, Ur Specific [place] 1.015, Urine Protein Negative, Urine Glucose (UA) Negative, Urine Ketones Negative, Urine Blood 1+, Urine Nitrate Negative, Urine Bilirubin Negative, Urine Urobilinogen 0.2, Ur Leukocyte Esterase 1+ A, Urine RBC 3-5, Urine WBC 3-5, Ur Squamous Epith Cells 3-5, Amorphous Sediment Trace 05/22/18 09:40: WBC 2.9 L D, RBC 3.44 L, Hct 27.6 L, MCV 80.5 L, MCH 24.1 L, MCHC 30.0 L, RDW 16.4, Plt Count 208, MPV 8.1, Neut % (Auto) 65.8, Lymph % (Auto ) 25.7, [place] % (Auto) 5.0, Eos % (Auto) 3.4, Baso % (Auto) 0.1, Neut # (Auto) 1.9, Lymph # (Auto) 0.7, [place] # (Auto) 0.2, Eos # (Auto) 0.1, Baso # (Auto) 0.0 05/22/18 09:40: Hemoglobin A1c 7.2 H 05/22/18 09:40: Triglycerides 123, Cholesterol 152, LDL Cholesterol 100, VLDL Cholesterol 25, HDL Cholesterol 27 L, Cholesterol/HDL Ratio 5.6 H Medical History: Reports:: Hypertension Denies:: Cancer, Diabetes Mellitus Type 1, Diabetes Mellitus Type 2, MRSA, Peripheral Artery Disease Assessment and Plan (1) Cellulitis Current visit: Yes Status: Acute Qualifiers: Site of cellulitis: unspecified site Qualified Code(s): L03.90 - Cellulitis , unspecified Category: Medical Code(s): L03.90 - Cellulitis, unspecified (2) Pressure ulcer of left heel, stage 2 Current visit: Yes Status: Acute Category: Medical Code(s): L89.622 - Pressure ulcer of left heel, stage 2 (3) Pressure ulcer of right heel, stage 2 Current visit: Yes Status: Acute Category: Medical Code(s): L89.612 - Pressure ulcer of right heel, stage 2 (4) Morbid obesity Current visit: Yes Status: Acute Category: Medical Code(s): E66.01 - Morbid (severe) obesity due to excess calories (5) Abscess of left foot Current visit: Yes Status: Acute Category: Medical Code(s): L02.612 - Cutaneous abscess of left foot (6) Rheumatoid arthritis Current visit: Yes Status: Acute Qualifiers: Rheumatoid arthritis location: unspecified site Rheumatoid factor presence : unspecified presence Qualified Code(s): M06.9 - Rheumatoid arthritis, unspecified Category: Medical Code(s): M06.9 - Rheumatoid arthritis, unspecified - Assessment and plan all Dx Assessment and Plan for all problems:: BASED ON PATIENT FACTORS, RECOMMEND VANCOMYCIN 2,500MG IV Q8H. WILL OBTAIN TROUGH LEVEL PRIOR TO FOURTH DOSE AND ADJUST DOSE APPROPRIATE. PHARMACY WILL CONTINUE TO MONITOR. -SHEREEN RUIZ PHARMD
--- NOTE | 2018-05-22 18:08 | Operative Note ---
Date of procedure: 05/22/18 Pre-op Diagnosis:: Bilateral heel pressure ulcers, stage II Left leg ulcer Cellulitis bilateral lower extremity Post-op Diagnosis:: Bilateral heel pressure ulcers, stage II Left leg ulcer Cellulitis bilateral lower extremity Procedure performed:: 1. Left heel incision and drainage 2. Right heel incision and drainage 3. B/l heel debridement 4. Left leg ulcer debridement Surgeon:: Aaliyah Villar DPM CLAIMS AUDITOR:: Jacinto Klein Anesthesia: local (30cc 0.5% marcaine plain), LMA Estimated blood loss (mL): 50 Clinical Note:: See Consult Note from today MRI unable to be completed on left due to patient movement. MRI on right not attempted. No contrast given. Operative findings:: Bilateral heel cellulitis, pressure ulcers with blistering. Right heel serous drainage, did not probe deeply to bone. Left heel had serosanginous drainage. No daren thick purulence noted. No malodor. Tracking noted along plantar aspect of left foot to midfoot. Did not probe to bone. Left lateral leg ulcer post debridement 5.2 x 2.6 x 0.2 cm. Operative note:: On this date and time patient was deemed an appropriate surgical candidate. With informed consent signed, the patient was taken to the operating theater. The patient was positioned supine. LMA anesthesia was induced. No tourniquet used. Pre-op bilateral heel block given with 30 cc 0.5% marcaine plain total. Left lateral leg ulcer debridement: Bilateral lower extremity was prepped and drapped in normal sterile fashion. Blistering noted to both heels and leg ulcer noted. Attention was directed to the left lateral leg where a 15' blade was used to sharply debride the ulcer through skin into subcutaneous tissue. Sharp curette was then used to further debride the tissue. There was no necrotic tissue noted. Biofilm and fibrotic slough along with nonviable tissue was sharply debrided. No purulence or drainage noted. Periwound cellulitis noted. Debridement the ulcer measured 5.2 x 2.6 x 0.2cm with 100% granular wound base. Xeroform soaked Betadine gauze was applied to the left leg, by dry sterile dressing. Left foot incision and drainage, ulcer debridement: Attention was directed to the left foot where a blister was noted. The foot had some crepitus and bogginess to it. There is a previous stab incision from where he took a wound culture on the floor. Utilizing a 15 blade the blister was initially debrided and removed. Under the skin, the tissue was still boggy , 15 blade was used to make a stab incision about 5 cm along the plantar heel. Using a mixture of sharp and blunt dissection the wound was explored. Serosanguineous drainage noted and wound culture was taken. Using a hemostat the wound was explored. There was tracking noted along the entire plantar aspect of the heel extending past the midfoot. The ulcer did track to the plantar posterior aspect of heel. The wound did not extend to the level of the bone. The wound extended to the deep fascia. There was no malodor noted. Right foot incision and drainage, ulcer debridement: Attention was directed to the right foot where a smaller blister was noted. The foot had no crepitus to it, but was boggy. Utilizing a 15 blade the blister was initially deroofed and removed. Under the tissue was still boggy, 15 blade was used to make a stab incision about 2 cm along the plantar heel. Using a mixture of sharp and blunt dissection the wound was explored. No purulence or drainage noted. Deep wound culture was taken. Using a hemostat the wound was explored. There was tracking noted inferiorly toward the heel but did not extend to the level of the bone. The wound extended to the deep fascia. There was no malodor noted. Next 3 L of bacitracin irrigation was used to flush both heel wounds with pulse lavage. The wounds were reexplored and no further signs of infection noted. Bleeding controlled. No vessels ligated with electrocautery or tied as there was minimal to no blood loss. 2-0 Prolene was used to close skin on half of the incision on the left heel, in an interrupted simple suture fashion. The most proximal part of the incision was left open and packed. Both the heel wounds were packed with Betadine soaked iodoform skin. The wounds were cleansed. Betadine soaked 4 x 4 followed by a dry sterile dressing was then applied to the left and right foot. The patient was awoken from anesthesia and transferred to recovery with vital signs stable and neurovascular status intact. Materials: 2-0 Prolene Discharge/Plan: Transfer back to the floor. Patient is to maintain dressing clean dry and intact. Reenforce as needed. Continue antibiotics. Off load both heels with a pillow. Non weight bearing to the lower extremity with DME assistance (wheelchair). Obtain post op films, left and right foot, 3 views. Plan for dressing change tomorrow by myself. Tourniquet time (min): 0 Condition: stable Disposition: floor Specimens:: Left heel wound culture Right heel wound culture Complications:: None
--- NOTE | 2018-05-22 18:21 | Progress Note ---
[facility] Anesthesia Checklist - Patient Identification Patient Identification: Arm Band - Structural Data Admitted From: Inpatient Planned Operative Procedure/s: I&D bilateral feet, left lower leg wound Consent for Planned Operative Procedure(s) Verified: Yes Verified Documents: Surgical Consent, History and Physical - NPO Status Verified Time NPO: 00:00 - Additional verifications Anesthesia Reactions: No - Airway Assessment C-Spine Mobility Assessed: Yes (mp3) TMJ Mobility Assessed: Yes Dentition: Good Dentition - Neurological Assessment Level of Consciousness: Awake, Alert - Anesthesia Plan Anesthesia Risk discussed: Yes Anesthesia Plan: Verified ASA Class: III Anesthesia Type: General [facility] Anesthesia HX I have reviewed the patient's past medical history: Yes Medical History: Reports:: Depression, Hypertension Denies:: Atherosclerotic Heart Disease, Cancer, Congestive Heart Failure, Chronic Obstructive Pulmonary Disease (COPD), Diabetes Mellitus Type 1, Diabetes Mellitus Type 2, MRSA, Peripheral Artery Disease Other Medical History: Reports: Anemia, Arthritis, Other (Rheumatoid arthritis) Laterality Cases: Left: Arthroscopy Knee Other Surgeries: Yes: Tubal Ligation Amputation: No Fractures: No *Family Hx:: Cancer, Coronary Artery Disease, Diabetes
--- NOTE | 2018-05-22 18:25 | Progress Note ---
[facility] Anesthesia Record Part I Intake, IV Amount: 700 Estimated blood loss (mL): 5 Urine output (mL): 0 Blood Pressure: 102/58 SaO2: 93 Pulse Rate: 90 Respiratory Rate: 16 Temperature: 98.2 F Patient is:: Drowsy, Stable Stable to PACU at:: 18:10
--- NOTE | 2018-05-22 18:25 | Progress Note ---
[facility] Anesthesia Record Part II Discharge Time: 18:10 Destination: 2nd floor PACU nurse assessment reviewed?: Yes Patient Condition:: Good Anesthesia Complications:: None
[2018-05-23 07:28] LABS: Albumin Level 1.7 gm/dL (3.4-5.0); Albumin/Globulin Ratio 0.4 (1.1-1.8); Anion Gap 11.7 mEq/L (5-15); Bilirubin,Total 0.3 mg/dL (0.2-1.0); Globulin 4.5 gm/dl (1.3-3.2); Potassium 3.7 mmoL/L (3.5-5.1); Total Protein,Serum 6.2 gm/dL (6.4-8.2)
[2018-05-23 07:34] LABS: Basophils % 0.1 % (0.1-2.0); Eosinophils # 0.2 K/mm3 (0.0-0.4); Eosinophils % 4.3 % (0.1-12.0); Hematocrit 27.2 % (37.0-47.0); Hemoglobin 8.1 g/dL (12.2-16.2); Lymphocytes # 0.7 K/mm3 (0.7-4.5); Lymphocytes % 16.2 K/mm3 (10-50); Mean Corpuscular HGB Conc 29.7 g/dL (31.8-35.4); Mean Corpuscular Hemoglobin 24.1 pg (27.0-31.2); Mean Corpuscular Volume 81.1 fl (81-99); Mean Platelet Volume 7.7 fl (7.4-10.4); Monocytes # 0.2 K/mm3 (0.1-1.0); Monocytes % 5.3 % (1.7-9.3); Neutrophils # 3.1 K/mm3 (1.8-7.8); Platelet Count 193 K/mm3 (142-424); Red Blood Count 3.35 M/mm3 (4.20-5.40); Red Cell Distribution Width 16.5 % (11.5-17.5); White Blood Count 4.2 K/mm3 (4.8-10.8)
[2018-05-23 07:44] LABS: C-Reactive Protein 25.4 mg/L (0.0-0.9)
--- NOTE | 2018-05-23 08:04 | Progress Note ---
Subjective Date: 05/23/18 Time: 07:45 Principal diagnosis: B/L LE cellulitis, decubitus heel ulcers Interval history: Ms. Gómez is a 60-year-old female who was admitted 05/21/18 for lower extremity cellulitis and possible left foot abscess. She was unable to do the MRI yesterday due to movement. No contrast was given and the right foot was not attempted. She was taken to surgery 05/22/18 for bilateral heel incision and drainage and left lateral leg wound debridement. Patient is uncomfortable in bed due to sacral decubitus ulcers. She denies nausea/vomiting, fever/chills, shortness of breath and chest pain. PN: Obj Ex Vital signs: Temp Pulse Resp BP Pulse Ox 98.5 F 94 H 20 103/52 97 05/23/18 04:00 05/23/18 04:00 05/23/18 04:00 05/23/18 04:00 05/23/18 04:00 Narrative: Afebrile, not septic - Constitutional no acute distress, morbidly obese - Routine HEENT Exam Head: Present: normocephalic - Routine Respiratory Exam Absent: respiratory distress - Routine Abdominal Exam Present: soft - Routine Extremities Exam Present: edema (improving), pulses intact, normal capillary refill, tenderness ( b/l heel). Absent: calf tenderness - Detailed Lower Extremity Exam Lower leg: Left wound (granular wound base, no SOI), Left erythema (improving to left lateral leg) Foot/Toes: Bilateral erythema (R resolved, L less than yesterday), Bilateral swelling (b/l feet, improving), Bilateral tenderness (heels), Bilateral wound (b /l heel pressure ulcers) Bottom foot image: 1 - Improving erythema and edema noted to right heel. Small linear incision over the plantar heel. No purulence or drainage. (+) POP. 2 - Edema and erythema noted, but less than yesterday. Superficial ulcer noted extending to plantar midfoot. Linear incision over plantar heel with 3 sutures intact to distal incision. Opening noted with no new drainage, no malodor or new SOI. (+) POP Comments: See images for wound details. CFT wnl. No calf or thigh pain noted. - Routine Skin Exam Present: erythema, wounds (multiple pressure sores on heels, back/sacrum). Absent: gangrene - Routine Neurological Exam Present: alert, oriented X3 - Routine Psychiatric Exam Present: anxious, agitated (secondary to pain ) - Urinary Catheter Management Straight Cath placed during this visit: yes Urethral indwelling: Yes Reason for continuing: Prolonged immobilization Insertion date: 05/21/18 Insertion time: 19:40 Progress Note: A&P (1) Abscess of left foot Status: Acute Current Visit: Yes (2) Anemia of chronic disease Status: Acute Current Visit: Yes (3) Cellulitis Status: Acute Current Visit: Yes (4) Decubitus ulcer Status: Acute Current Visit: Yes (5) Morbid obesity Status: Acute Current Visit: Yes (6) Pressure ulcer of left heel, stage 2 Status: Acute Current Visit: Yes (7) Pressure ulcer of right heel, stage 2 Status: Acute Current Visit: Yes (8) Rheumatoid arthritis Status: Acute Current Visit: Yes Assessment and Plan for All Diagnoses:: S/p b/l heel incision and drainage with debridement, left lateral leg wound debridement on 05/22/18 POD # 1 Patient was given morphine prior to dressing changes. Dressings removed from the right foot. Utilizing sterile saline flushes the wound was flushed and squeeze. There was no drainage or any signs of infection noted. Betadine soaked quarter inch packing was inserted into the right plantar heel incision followed by Betadine soaked 4 x 4's, dry sterile dressing. Next dressings were removed from the left lower extremity. The left lateral leg ulcer looks stable will base was 100% granular. It was not sharply debrided. Periwound erythema noted to be decreased. Xeroform Betadine soaked 4 x 4 followed by dry sterile dressing was applied to the left leg. Dressing was then removed from the left foot. Left heel incision flushed with normal sterile saline. It was palpated and squeeze, no new purulence or drainage was expressed. She had pain throughout the dressing change. Next Betadine soaked quarter inch packing was inserted into the left heel followed by Betadine soaked 4 x 4 and a dry sterile dressing. Plan: 1. Daily dressing changes with: Saline flushes, Betadine soaked 1/4" packing, 4 4, ABD pads, Kerlix rolls and Lj bandages 2. Monitor wound cultures, continue antibiotics 3. X-rays taken 05/22/18 reviewed postoperatively. No new signs of gas or worsening infection noted. 4. Will need Morphine prior to dressing changes 5. Continue to offload the heels with pillows 6. NWB bilateral lower extremities 7. Upon discharge will need home health care for daily packing dressing changes , wound consider rehab as dressing changes are extensive at this point and she will need antibiotics as well 8. Dr. Villar will plan for dressing change tomorrow am with the nursing staff
[2018-05-23 08:28] LABS: Calcium 8.1 mg/dL (8.5-10.1)
--- NOTE | 2018-05-23 09:16 | Progress Note ---
<Debra Hebert - Last Filed: 05/23/18 09:13> Internal Medicine - PN: Subj *Date: 05/23/18 *Time: 09:13 Interval history: Observed patient having wound care per Dr. Villar. Very painful for patient. Has not been eating well. She just does not desire food. She did not sleep well. She denies chest pain and shortness of breath. Discussed new diagnosis of diabetes with patient and daughter. Exam Vital signs and Labs for Last 24 Hours: Temp Pulse Resp BP Pulse Ox 98.3 F 91 H 20 110/69 97 05/23/18 08:00 05/23/18 08:00 05/23/18 08:00 05/23/18 08:00 05/23/18 08:00 Laboratory Results - last 24 hr 05/22/18 09:40: WBC 2.9 L D, RBC 3.44 L, Hgb 8.3 L D, Hct 27.6 L, MCV 80.5 L, MCH 24.1 L, MCHC 30.0 L, RDW 16.4, Plt Count 208, MPV 8.1, Neut % (Auto) 65.8, Lymph % (Auto) 25.7, Wilkes % (Auto) 5.0, Eos % (Auto) 3.4, Baso % (Auto) 0.1, Neut # (Auto) 1.9, Lymph # (Auto) 0.7, Wilkes # (Auto) 0.2, Eos # (Auto) 0.1, Baso # (Auto) 0.0 05/22/18 09:40: Hemoglobin A1c 7.2 H 05/22/18 09:40: Triglycerides 123, Cholesterol 152, LDL Cholesterol 100, VLDL Cholesterol 25, HDL Cholesterol 27 L, Cholesterol/HDL Ratio 5.6 H 05/23/18 06:48: WBC 4.2 L D, RBC 3.35 L, Hgb 8.1 L, Hct 27.2 L, MCV 81.1, MCH 24.1 L, MCHC 29.7 L, RDW 16.5, Plt Count 193, MPV 7.7, Neut % (Auto) 74.0, Lymph % (Auto) 16.2, Wilkes % (Auto) 5.3, Eos % (Auto) 4.3, Baso % (Auto) 0.1, Neut # (Auto) 3.1, Lymph # (Auto) 0.7, Wilkes # (Auto) 0.2, Eos # (Auto) 0.2, Baso # (Auto) 0.0 05/23/18 06:48: Sodium 140, Potassium 3.7, Chloride 103, Carbon Dioxide 29, Anion Gap 11.7, BUN 8 D, Creatinine 0.69, Estimated Creat Clear 105, Estimated GFR 90, Est GFR ( Amer) 109, Glucose 96, Calcium 8.1 L, Total Bilirubin 0.3, AST 14 L D, ALT 14, Alkaline Phosphatase 93, C-Reactive Protein 25.4 H, Total Protein 6.2 L, Albumin 1.7 L D, Globulin 4.5 H, Albumin/Globulin Ratio 0.4 L 05/23/18 06:48: Hemoglobin A1c 7.1 H I & O for Last 24 hours: Intake & Output 05/20/18 05/21/18 05/22/18 05/23/18 11:59 11:59 11:59 11:59 Intake Total 732 / 732 940 / 940 Output Total 1300 / 1300 Balance 732 / 732 -360 / -360 Weight 360 lb 359 lb 15.991 oz Microbiology Reports for the Last 24 Hours: Microbiology 05/22/18 Unknown Foot,Right Gram Stain - Final 05/22/18 Unknown Foot,Left Gram Stain - Final 05/21/18 19:50 Urine,Catheterized Urine Culture - Preliminary NO GROWTH AFTER 24 HOURS 05/22/18 08:06 Foot,Left Gram Stain - Final - Constitutional no acute distress, morbidly obese - *Routine Respiratory Exam Present: CTA bilaterally - *Routine Cardiovascular Exam Present: RRR - *Routine Abdominal Exam Present: soft, normoactive bowel sounds Comments: Obese - *Routine Extremities Exam Comments: Less edema today. Scabs on lower legs appear to be healing. Wound on left outer lower leg appears clean and smaller. Observe wound care per Dr. Lepe on bilateral heels. Left heel with drain and larger in size than right heel. - *Routine Neurological Exam Present: alert, oriented X3 Assessment and Plan (1) Abscess of left foot Current visit: Yes Status: Acute Category: Medical Code(s): L02.612 - Cutaneous abscess of left foot (2) Anemia of chronic disease Current visit: Yes Status: Acute Category: Medical Code(s): D63.8 - Anemia in other chronic diseases classified elsewhere (3) Cellulitis Current visit: Yes Status: Acute Qualifiers: Site of cellulitis: unspecified site Qualified Code(s): L03.90 - Cellulitis , unspecified Category: Medical Code(s): L03.90 - Cellulitis, unspecified (4) Decubitus ulcer Current visit: Yes Status: Acute Qualifiers: Pressure injury location: other site Pressure injury stage: stage 1 Qualified Code(s): L89.891 - Pressure ulcer of other site, stage 1 Category: Medical Code(s): L89.90 - Pressure ulcer of unspecified site, unspecified stage (5) Morbid obesity Current visit: Yes Status: Acute Category: Medical Code(s): E66.01 - Morbid (severe) obesity due to excess calories (6) Pressure ulcer of left heel, stage 2 Current visit: Yes Status: Acute Category: Medical Code(s): L89.622 - Pressure ulcer of left heel, stage 2 (7) Pressure ulcer of right heel, stage 2 Current visit: Yes Status: Acute Category: Medical Code(s): L89.612 - Pressure ulcer of right heel, stage 2 (8) Rheumatoid arthritis Current visit: Yes Status: Acute Qualifiers: Rheumatoid arthritis location: unspecified site Rheumatoid factor presence : unspecified presence Qualified Code(s): M06.9 - Rheumatoid arthritis, unspecified Category: Medical Code(s): M06.9 - Rheumatoid arthritis, unspecified (9) Type 2 diabetes mellitus Current visit: Yes Status: Acute Category: Medical Code(s): E11.9 - Type 2 diabetes mellitus without complications - Assessment and plan all Dx Assessment and Plan for all problems:: Will saline lock IV. She has been started on a diabetic diet and sliding scale insulin. She has been started on Lovenox and metformin as well. She will have a Restrepo catheter for skin protection. Pain medicine continues as needed.. She will also have anemia studies. Wound care as per Dr. Villar <Augusta Gipson - Last Filed: 05/24/18 12:12> Internal Medicine - PN: Subj *Date: 05/24/18 *Time: 12:09 Exam Vital signs and Labs for Last 24 Hours: Temp Pulse Resp BP Pulse Ox 98.4 F 82 22 122/73 94 L 05/24/18 07:51 05/24/18 07:51 05/24/18 07:51 05/24/18 07:51 05/24/18 08:00 Laboratory Results - last 24 hr 05/23/18 11:25: POC Glucose 202 H 05/23/18 16:00: POC Glucose 95 05/23/18 20:47: POC Glucose 161 H 05/24/18 06:18: POC Glucose 116 H 05/24/18 10:43: POC Glucose 134 H I & O for Last 24 hours: Intake & Output 05/22/18 05/23/18 05/24/18 05/25/18 11:59 11:59 11:59 11:59 Intake Total 732 / 732 940 / 940 360 / 360 Output Total 1300 / 1300 600 / 600 Balance 732 / 732 -360 / -360 -240 / -240 Weight 360 lb 359 lb 15.991 oz Microbiology Reports for the Last 24 Hours: Microbiology 05/22/18 Unknown Foot,Left Gram Stain - Final 05/22/18 Unknown Foot,Left Wound Culture - Preliminary Gram Positive Cocci 05/21/18 19:50 Urine,Catheterized Urine Culture - Final NO GROWTH AFTER 48 HOURS 05/21/18 19:15 Blood Blood Culture - Preliminary NO GROWTH AFTER 48 HOURS 05/21/18 19:15 Blood Blood Culture - Preliminary NO GROWTH AFTER 48 HOURS 05/22/18 Unknown Foot,Right Gram Stain - Final 05/22/18 Unknown Foot,Right Wound Culture - Preliminary NO GROWTH AFTER 24 HOURS 05/22/18 08:06 Foot,Left Gram Stain - Final 05/22/18 08:06 Foot,Left Wound Culture - Preliminary NO GROWTH AFTER 24 HOURS Assessment and Plan (1) Abscess of left foot Current visit: Yes Status: Acute Category: Medical Code(s): L02.612 - Cutaneous abscess of left foot (2) Anemia of chronic disease Current visit: Yes Status: Acute Category: Medical Code(s): D63.8 - Anemia in other chronic diseases classified elsewhere (3) Cellulitis Current visit: Yes Status: Acute Qualifiers: Site of cellulitis: unspecified site Qualified Code(s): L03.90 - Cellulitis , unspecified Category: Medical Code(s): L03.90 - Cellulitis, unspecified (4) Decubitus ulcer Current visit: Yes Status: Acute Qualifiers: Pressure injury location: other site Pressure injury stage: stage 1 Qualified Code(s): L89.891 - Pressure ulcer of other site, stage 1 Category: Medical Code(s): L89.90 - Pressure ulcer of unspecified site, unspecified stage (5) Morbid obesity Current visit: Yes Status: Acute Category: Medical Code(s): E66.01 - Morbid (severe) obesity due to excess calories (6) Pressure ulcer of left heel, stage 2 Current visit: Yes Status: Acute Category: Medical Code(s): L89.622 - Pressure ulcer of left heel, stage 2 (7) Pressure ulcer of right heel, stage 2 Current visit: Yes Status: Acute Category: Medical Code(s): L89.612 - Pressure ulcer of right heel, stage 2 (8) Rheumatoid arthritis Current visit: Yes Status: Acute Qualifiers: Rheumatoid arthritis location: unspecified site Rheumatoid factor presence : unspecified presence Qualified Code(s): M06.9 - Rheumatoid arthritis, unspecified Category: Medical Code(s): M06.9 - Rheumatoid arthritis, unspecified (9) Type 2 diabetes mellitus Current visit: Yes Status: Acute Category: Medical Code(s): E11.9 - Type 2 diabetes mellitus without complications - Assessment and plan all Dx Assessment and Plan for all problems:: I agree with above and my assessment is as follows Patient doing well, but complaining of pain and s/p debridement by Dr. Villar Gen : AAO x 3, morbidly obese lungs: CTA Heart: RRR Abd: soft, NT, ND, + BS Ext: no edema, bilateral leg with c/d/i bandage s/p debridement. A/P: will adjust pain meds for better pain control will start on lovenox 2/2 non-weight bearing start on metformin for new onset DM Type 2 will do periweak for Urine output monitoring continue wound care and get placement set up boom
[2018-05-23 09:52] LABS: Erythrocyte Sedimentation Rate > 120 mm/hr (0-20)
--- NOTE | 2018-05-24 08:17 | Progress Note ---
Subjective Date: 05/24/18 Time: 07:40 Principal diagnosis: B/L LE cellulitis, decubitus heel ulcers Interval history: Ms. Gómez is a 7o y/o newly diagnosed DM obese female who was admitted 05/21/18 for lower extremity cellulitis and left foot abscess. She was taken to surgery 05/22/18 for bilateral heel incision and drainage and left lateral leg wound debridement. Patient is resting comfortably in bed eating breakfast. Her heels are off loaded with pillows. She denies nausea/vomiting, fever/chills, shortness of breath and chest pain. PN: Obj Ex Vital signs: Temp Pulse Resp BP Pulse Ox 98.4 F 82 22 122/73 94 L 05/24/18 07:51 05/24/18 07:51 05/24/18 07:51 05/24/18 07:51 05/24/18 07:51 - Constitutional no acute distress, morbidly obese - Routine HEENT Exam Head: Present: normocephalic - Routine Neck Exam Present: supple - Routine Respiratory Exam Absent: respiratory distress, wheezes - Routine Abdominal Exam Present: soft - Routine Extremities Exam Present: edema (improving), pulses intact, normal capillary refill, tenderness ( b/l heels). Absent: amputation - Detailed Lower Extremity Exam Lower leg: Left tenderness (improving), Left wound (left lateral leg, 100% granular base w/ no new SOI), Left erythema (mild bessie wound) Foot/Toes: Bilateral tenderness (see below, pic), Bilateral wound Bottom foot image: 1 - Improving erythema and edema noted to right heel. Small linear incision over the plantar heel. No purulence or drainage. (+) POP. 2 - Edema and erythema noted, but less than yesterday. Superficial ulcer noted extending to plantar midfoot. Linear incision over plantar heel with 3 sutures intact to distal incision. Opening noted with no new drainage, no malodor or new SOI. (+) POP - Urinary Catheter Management Straight Cath placed during this visit: yes Urethral indwelling: Yes Reason for continuing: Not indwelling catheter Insertion date: 05/21/18 Insertion time: 19:40 Progress Note: A&P (1) Abscess of left foot Status: Acute Current Visit: Yes (2) Anemia of chronic disease Status: Acute Current Visit: Yes (3) Cellulitis Status: Acute Current Visit: Yes (4) Decubitus ulcer Status: Acute Current Visit: Yes (5) Morbid obesity Status: Acute Current Visit: Yes (6) Pressure ulcer of left heel, stage 2 Status: Acute Current Visit: Yes (7) Pressure ulcer of right heel, stage 2 Status: Acute Current Visit: Yes (8) Rheumatoid arthritis Status: Acute Current Visit: Yes (9) Type 2 diabetes mellitus Status: Acute Current Visit: Yes Assessment and Plan for All Diagnoses:: S/p b/l heel incision and drainage with debridement, left lateral leg wound debridement on 05/22/18 POD # 2 Patient was given morphine prior to dressing changes. Dressings removed from the right foot. Utilizing sterile saline flushes the wound was flushed and squeeze. There was no drainage or any signs of infection noted. Betadine soaked quarter inch packing was inserted into the right plantar heel incision followed by Betadine soaked 4 x 4's, dry sterile dressing. Next dressings were removed from the left lower extremity. The left lateral leg ulcer looks stable will base was 100% granular. Periwound erythema noted to be decreased. Xeroform Betadine soaked 4 x 4 followed by dry sterile dressing was applied to the left leg. Dressing was then removed from the left foot. Left heel incision flushed with normal sterile saline. It was palpated and squeeze, no new purulence or drainage was expressed. Next Betadine soaked quarter inch packing was inserted into the left heel followed by Betadine soaked 4 x 4 and a dry sterile dressing. Overall pain better controlled today. Wounds all looks better, improved cellulitis, edema and erythema. Plan: 1. Daily dressing changes with: Saline flushes, Betadine soaked 1/4" packing, 4 4, ABD pads, Kerlix rolls and Lj bandages 2. Monitor wound cultures: NG x 24 hours 3. Continue abx 4. Continue to offload the heels with pillows 5. NWB bilateral lower extremities 6. Upon discharge will need home health care for daily packing dressing changes , wound consider rehab as dressing changes are extensive at this point and she will need antibiotics as well 7. Dr. Villar will plan for dressing change tomorrow am with the nursing staff
--- NOTE | 2018-05-24 08:35 | Progress Note ---
<Debra Hebert - Last Filed: 05/24/18 08:39> Internal Medicine - PN: Subj *Date: 05/24/18 *Time: 08:39 Interval history: Patient seems to be better today. Observed dressing changes by Dr. Villar. Wounds do look better. She did sleep a few hours last night. Cultures are negative at 48 hours. Exam Vital signs and Labs for Last 24 Hours: Temp Pulse Resp BP Pulse Ox 98.4 F 82 22 122/73 94 L 05/24/18 07:51 05/24/18 07:51 05/24/18 07:51 05/24/18 07:51 05/24/18 07:51 Laboratory Results - last 24 hr 05/23/18 06:40: Retic Count (auto) 1.0 05/23/18 06:48: ESR > 120 H 05/23/18 06:48: Calcium 8.1 L 05/23/18 06:48: Hemoglobin A1c 7.1 H 05/23/18 11:25: POC Glucose 202 H 05/23/18 16:00: POC Glucose 95 05/23/18 20:47: POC Glucose 161 H 05/24/18 06:18: POC Glucose 116 H I & O for Last 24 hours: Intake & Output 05/21/18 05/22/18 05/23/18 05/24/18 11:59 11:59 11:59 11:59 Intake Total 732 / 732 940 / 940 360 / 360 Output Total 1300 / 1300 600 / 600 Balance 732 / 732 -360 / -360 -240 / -240 Weight 360 lb 359 lb 15.991 oz Microbiology Reports for the Last 24 Hours: Microbiology 05/21/18 19:50 Urine,Catheterized Urine Culture - Final NO GROWTH AFTER 48 HOURS 05/21/18 19:15 Blood Blood Culture - Preliminary NO GROWTH AFTER 48 HOURS 05/21/18 19:15 Blood Blood Culture - Preliminary NO GROWTH AFTER 48 HOURS 05/22/18 Unknown Foot,Left Gram Stain - Final 05/22/18 Unknown Foot,Left Wound Culture - Preliminary NO GROWTH AFTER 24 HOURS 05/22/18 Unknown Foot,Right Gram Stain - Final 05/22/18 Unknown Foot,Right Wound Culture - Preliminary NO GROWTH AFTER 24 HOURS 05/22/18 08:06 Foot,Left Gram Stain - Final 05/22/18 08:06 Foot,Left Wound Culture - Preliminary NO GROWTH AFTER 24 HOURS - Constitutional no acute distress - *Routine Respiratory Exam Present: CTA bilaterally - *Routine Cardiovascular Exam Present: RRR - *Routine Abdominal Exam Present: soft, normoactive bowel sounds. Absent: tenderness - *Routine Extremities Exam Comments: Minimal edema. New dressings on bilateral heels and left lower legs intact. Description of wounds as per Dr. Flanagan's note. - *Routine Neurological Exam Present: alert, oriented X3 Assessment and Plan (1) Abscess of left foot Current visit: Yes Status: Acute Category: Medical Code(s): L02.612 - Cutaneous abscess of left foot (2) Anemia of chronic disease Current visit: Yes Status: Acute Category: Medical Code(s): D63.8 - Anemia in other chronic diseases classified elsewhere (3) Cellulitis Current visit: Yes Status: Acute Category: Medical Code(s): L03.90 - Cellulitis, unspecified (4) Decubitus ulcer Current visit: Yes Status: Acute Category: Medical Code(s): L89.90 - Pressure ulcer of unspecified site, unspecified stage (5) Morbid obesity Current visit: Yes Status: Acute Category: Medical Code(s): E66.01 - Morbid (severe) obesity due to excess calories (6) Pressure ulcer of left heel, stage 2 Current visit: Yes Status: Acute Category: Medical Code(s): L89.622 - Pressure ulcer of left heel, stage 2 (7) Pressure ulcer of right heel, stage 2 Current visit: Yes Status: Acute Category: Medical Code(s): L89.612 - Pressure ulcer of right heel, stage 2 (8) Rheumatoid arthritis Current visit: Yes Status: Acute Category: Medical Code(s): M06.9 - Rheumatoid arthritis, unspecified (9) Type 2 diabetes mellitus Current visit: Yes Status: Acute Category: Medical Code(s): E11.9 - Type 2 diabetes mellitus without complications - Assessment and plan all Dx Assessment and Plan for all problems:: Needs dietary instruction. Continue with antibiotics and dressing changes as per Dr. Villar. Discussed disposition with patient and she is okay with going to [facility]. She plans for her mother to continue with care and dressing changes after this. Continue with antibiotics. Dr. Villar plans to do dressing changes again tomorrow morning. <Augusta Gipson - Last Filed: 05/24/18 12:14> Internal Medicine - PN: Subj *Date: 05/24/18 *Time: 12:12 Exam Vital signs and Labs for Last 24 Hours: Temp Pulse Resp BP Pulse Ox 98.4 F 82 22 122/73 94 L 05/24/18 07:51 05/24/18 07:51 05/24/18 07:51 05/24/18 07:51 05/24/18 08:00 Laboratory Results - last 24 hr 05/23/18 11:25: POC Glucose 202 H 05/23/18 16:00: POC Glucose 95 05/23/18 20:47: POC Glucose 161 H 05/24/18 06:18: POC Glucose 116 H 05/24/18 10:43: POC Glucose 134 H I & O for Last 24 hours: Intake & Output 05/22/18 05/23/18 05/24/18 05/25/18 11:59 11:59 11:59 11:59 Intake Total 732 / 732 940 / 940 360 / 360 Output Total 1300 / 1300 600 / 600 Balance 732 / 732 -360 / -360 -240 / -240 Weight 360 lb 359 lb 15.991 oz Microbiology Reports for the Last 24 Hours: Microbiology 05/22/18 Unknown Foot,Left Gram Stain - Final 05/22/18 Unknown Foot,Left Wound Culture - Preliminary Gram Positive Cocci 05/21/18 19:50 Urine,Catheterized Urine Culture - Final NO GROWTH AFTER 48 HOURS 05/21/18 19:15 Blood Blood Culture - Preliminary NO GROWTH AFTER 48 HOURS 05/21/18 19:15 Blood Blood Culture - Preliminary NO GROWTH AFTER 48 HOURS 05/22/18 Unknown Foot,Right Gram Stain - Final 05/22/18 Unknown Foot,Right Wound Culture - Preliminary NO GROWTH AFTER 24 HOURS 05/22/18 08:06 Foot,Left Gram Stain - Final 05/22/18 08:06 Foot,Left Wound Culture - Preliminary NO GROWTH AFTER 24 HOURS Assessment and Plan (1) Abscess of left foot Current visit: Yes Status: Acute Category: Medical Code(s): L02.612 - Cutaneous abscess of left foot (2) Anemia of chronic disease Current visit: Yes Status: Acute Category: Medical Code(s): D63.8 - Anemia in other chronic diseases classified elsewhere (3) Cellulitis Current visit: Yes Status: Acute Qualifiers: Site of cellulitis: unspecified site Qualified Code(s): L03.90 - Cellulitis , unspecified Category: Medical Code(s): L03.90 - Cellulitis, unspecified (4) Decubitus ulcer Current visit: Yes Status: Acute Qualifiers: Pressure injury location: other site Pressure injury stage: stage 1 Qualified Code(s): L89.891 - Pressure ulcer of other site, stage 1 Category: Medical Code(s): L89.90 - Pressure ulcer of unspecified site, unspecified stage (5) Morbid obesity Current visit: Yes Status: Acute Category: Medical Code(s): E66.01 - Morbid (severe) obesity due to excess calories (6) Pressure ulcer of left heel, stage 2 Current visit: Yes Status: Acute Category: Medical Code(s): L89.622 - Pressure ulcer of left heel, stage 2 (7) Pressure ulcer of right heel, stage 2 Current visit: Yes Status: Acute Category: Medical Code(s): L89.612 - Pressure ulcer of right heel, stage 2 (8) Rheumatoid arthritis Current visit: Yes Status: Acute Qualifiers: Rheumatoid arthritis location: unspecified site Rheumatoid factor presence : unspecified presence Qualified Code(s): M06.9 - Rheumatoid arthritis, unspecified Category: Medical Code(s): M06.9 - Rheumatoid arthritis, unspecified (9) Type 2 diabetes mellitus Current visit: Yes Status: Acute Category: Medical Code(s): E11.9 - Type 2 diabetes mellitus without complications - Assessment and plan all Dx Assessment and Plan for all problems:: I agree with above and my assessment is as follows Patient doing well and is agreeable to go to [place] this tuesday. Gen : AAO x 3, Morbidly obese lungs: CTA Heart: RRR Abd: soft, NT, ND, + BS Ext: no edema, s/p debridement bilateral legs by Dr. Villar A/P: will plan on dispo this tuesday to [place] continue Iv abx, will transition to PO abx on tuesday depending on cultures continue lovenox until able to bear weight continue PT and wound care
--- NOTE | 2018-05-25 08:10 | Progress Note ---
Subjective Date: 05/25/18 Time: 07:45 Principal diagnosis: B/L LE cellulitis, decubitus heel ulcers Interval history: Ms. Gómez is a 52 y/o newly diagnosed DM obese female who was admitted 05/21/18 for lower extremity cellulitis and left foot abscess. She was taken to surgery 05/22/18 for bilateral heel incision and drainage and left lateral leg wound debridement. Patient is resting comfortably in bed eating breakfast. Her heels are off loaded with pillows. She denies nausea/vomiting, fever/chills, shortness of breath and chest pain. PN: Obj Ex Vital signs: Temp Pulse Resp BP Pulse Ox 97.6 F 89 20 138/74 95 05/25/18 07:33 05/25/18 07:33 05/25/18 07:33 05/25/18 07:33 05/25/18 07:33 Narrative: Afebrile. Denies N/V, F/C, SOB/CP - Constitutional no acute distress - Routine HEENT Exam Head: Present: normocephalic - Routine Respiratory Exam Absent: respiratory distress - Routine Extremities Exam Present: edema, pulses intact, normal capillary refill, tenderness - Detailed Lower Extremity Exam Ankle: Left wound (LATERAL LEG) Foot/Toes: Left erythema (IMPROVING) Bottom foot image: 1 - 1 - Erythema and edema resolving to right heel. Small linear incision over the plantar heel. No purulence or drainage. Less POP. 2 - 2 - Edema and erythema noted, but less than yesterday. Superficial ulcer noted extending to plantar midfoot. Linear incision over plantar heel with 3 sutures intact to distal incision. Opening noted with no new drainage, no malodor or new SOI. (+) POP - Urinary Catheter Management Straight Cath placed during this visit: yes Urethral indwelling: Yes Reason for continuing: Not indwelling catheter Insertion date: 05/21/18 Insertion time: 19:40 Progress Note: A&P (1) Abscess of left foot Status: Acute Current Visit: Yes (2) Anemia of chronic disease Status: Acute Current Visit: Yes (3) Cellulitis Status: Acute Current Visit: Yes (4) Decubitus ulcer Status: Acute Current Visit: Yes (5) Morbid obesity Status: Acute Current Visit: Yes (6) Pressure ulcer of left heel, stage 2 Status: Acute Current Visit: Yes (7) Pressure ulcer of right heel, stage 2 Status: Acute Current Visit: Yes (8) Rheumatoid arthritis Status: Acute Current Visit: Yes (9) Type 2 diabetes mellitus Status: Acute Current Visit: Yes Assessment and Plan for All Diagnoses:: S/p b/l heel incision and drainage with debridement, left lateral leg wound debridement on 05/22/18 POD # 3 Patient was given morphine prior to dressing changes. Dressings removed from the right foot. Utilizing sterile saline flushes the wound was flushed and squeeze. There was no drainage or any signs of infection noted. No packing to the right heel. Betadine soaked 4 x 4's, dry sterile dressing applied. Next dressings were removed from the left lower extremity. The left lateral leg ulcer looks stable will base was 100% granular. Wound 5.0 x 2.6 x 0.2 cm. Periwound erythema noted to be decreased. Xeroform Betadine soaked 4 x 4 followed by dry sterile dressing was applied to the left leg. Dressing was then removed from the left foot. Left heel incision flushed with normal sterile saline. It was palpated and squeeze, no new purulence or drainage was expressed. Next Betadine soaked quarter inch packing was inserted into the left heel followed by Betadine soaked 4 x 4 and a dry sterile dressing. Overall pain better controlled today. Wounds all looks better, improved cellulitis, edema and erythema. Plan: 1. Daily dressing changes with: saline flushes, betadine soaked 1/4" packing, xeroform, 44, ABD pads, Kerlix rolls and Lj bandages to the left heel. Xeroform, betadine soaked 4x4, DSD to right heel and left leg. 2. Wound cultures: MSSA 3. Continue abx, okay for oral 4. Continue to offload the heels with pillows 5. NWB left lower extremity with post op shoe, PWB to right foot as tolerated in post op shoe 6. Upon discharge will need home health care for daily packing dressing changes (see above) 7. Okay from Podiatry stand point to be discharged to SNF. Recommend po abx ( Levo 500mg qd or Clinda 300mg TID x 3 weeks) 8. Follow up with wound care clinic out patient
--- NOTE | 2018-05-25 08:28 | Progress Note ---
<Dottie Rivers - Last Filed: 05/25/18 08:25> Internal Medicine - PN: Subj *Date: 05/25/18 *Time: 08:25 Interval history: Patient states she once again had severe pain during dressing changes this morning. She denies any other pain. She states she slept off and on throughout the night and did eat her breakfast this morning. Exam Vital signs and Labs for Last 24 Hours: Temp Pulse Resp BP Pulse Ox 97.6 F 89 20 138/74 95 05/25/18 07:33 05/25/18 07:33 05/25/18 07:33 05/25/18 07:33 05/25/18 07:33 Laboratory Results - last 24 hr 05/24/18 10:43: POC Glucose 134 H 05/24/18 16:37: POC Glucose 114 H 05/24/18 20:06: POC Glucose 113 H 05/25/18 06:02: POC Glucose 101 I & O for Last 24 hours: Intake & Output 05/22/18 05/23/18 05/24/18 05/25/18 11:59 11:59 11:59 11:59 Intake Total 732 / 732 940 / 940 360 / 360 480 / 480 Output Total 1300 / 1300 600 / 600 Balance 732 / 732 -360 / -360 -240 / -240 480 / 480 Weight 360 lb 359 lb 15.991 oz Microbiology Reports for the Last 24 Hours: Microbiology 05/22/18 Unknown Foot,Left Gram Stain - Final 05/22/18 Unknown Foot,Left Wound Culture - Preliminary Staphylococcus aureus 05/22/18 Unknown Foot,Right Gram Stain - Final 05/22/18 Unknown Foot,Right Wound Culture - Preliminary NO GROWTH AFTER 48 HOURS 05/22/18 08:06 Foot,Left Gram Stain - Final 05/22/18 08:06 Foot,Left Wound Culture - Preliminary NO GROWTH AFTER 48 HOURS - Constitutional no acute distress - *Routine Respiratory Exam Present: CTA bilaterally - *Routine Cardiovascular Exam Present: RRR - *Routine Abdominal Exam Present: soft, normoactive bowel sounds. Absent: tenderness - *Routine Extremities Exam Present: edema (bilateral lower extremities) - *Routine Skin Exam Comments: bilateral feet wrapped Assessment and Plan (1) Abscess of left foot Current visit: Yes Status: Acute Category: Medical Code(s): L02.612 - Cutaneous abscess of left foot (2) Anemia of chronic disease Current visit: Yes Status: Acute Category: Medical Code(s): D63.8 - Anemia in other chronic diseases classified elsewhere (3) Cellulitis Current visit: Yes Status: Acute Qualifiers: Site of cellulitis: unspecified site Qualified Code(s): L03.90 - Cellulitis , unspecified Category: Medical Code(s): L03.90 - Cellulitis, unspecified (4) Decubitus ulcer Current visit: Yes Status: Acute Qualifiers: Pressure injury location: other site Pressure injury stage: stage 1 Qualified Code(s): L89.891 - Pressure ulcer of other site, stage 1 Category: Medical Code(s): L89.90 - Pressure ulcer of unspecified site, unspecified stage (5) Morbid obesity Current visit: Yes Status: Acute Category: Medical Code(s): E66.01 - Morbid (severe) obesity due to excess calories (6) Pressure ulcer of left heel, stage 2 Current visit: Yes Status: Acute Category: Medical Code(s): L89.622 - Pressure ulcer of left heel, stage 2 (7) Pressure ulcer of right heel, stage 2 Current visit: Yes Status: Acute Category: Medical Code(s): L89.612 - Pressure ulcer of right heel, stage 2 (8) Rheumatoid arthritis Current visit: Yes Status: Acute Qualifiers: Rheumatoid arthritis location: unspecified site Rheumatoid factor presence : unspecified presence Qualified Code(s): M06.9 - Rheumatoid arthritis, unspecified Category: Medical Code(s): M06.9 - Rheumatoid arthritis, unspecified (9) Type 2 diabetes mellitus Current visit: Yes Status: Acute Category: Medical Code(s): E11.9 - Type 2 diabetes mellitus without complications - Assessment and plan all Dx Assessment and Plan for all problems:: Dr. Villar's note appreciated. Patient has a bed at a [facility]. Possible discharge tomorrow. <Augusta Gipson - Last Filed: 05/25/18 13:48> Internal Medicine - PN: Subj *Date: 05/25/18 *Time: 13:47 Exam Vital signs and Labs for Last 24 Hours: Temp Pulse Resp BP Pulse Ox 97.6 F 89 20 138/74 95 05/25/18 07:33 05/25/18 07:33 05/25/18 07:33 07/19/18 07:33 05/25/18 07:33 Laboratory Results - last 24 hr 05/23/18 06:48: Iron 22 L, TIBC 169 L, Iron Saturation 13 L, Unsaturated IBC 147 , Vitamin B12 175 L, Folate 8.1 05/24/18 16:37: POC Glucose 114 H 05/24/18 20:06: POC Glucose 113 H 05/25/18 06:02: POC Glucose 101 05/25/18 11:20: POC Glucose 136 H I & O for Last 24 hours: Intake & Output 05/23/18 05/24/18 05/25/18 05/26/18 11:59 11:59 11:59 11:59 Intake Total 940 / 940 360 / 360 720 / 720 Output Total 1300 / 1300 600 / 600 Balance -360 / -360 -240 / -240 720 / 720 Weight 359 lb 15.991 oz Microbiology Reports for the Last 24 Hours: Microbiology 05/22/18 08:06 Foot,Left Gram Stain - Final 05/22/18 08:06 Foot,Left Wound Culture - Preliminary NO GROWTH AFTER 72 HOURS 05/22/18 Unknown Foot,Left - Final Not Reportable 05/22/18 Unknown Foot,Left - Final Not Reportable 05/22/18 Unknown Foot,Left - Final Not Reportable 05/22/18 Unknown Foot,Left - Final Not Reportable 05/22/18 Unknown Foot,Left - Final Not Reportable 05/22/18 Unknown Foot,Left Gram Stain - Final 05/22/18 Unknown Foot,Left Wound Culture - Final Staphylococcus aureus Gram Positive Bacilli 05/22/18 Unknown Foot,Right Gram Stain - Final 05/22/18 Unknown Foot,Right Wound Culture - Preliminary NO GROWTH AFTER 48 HOURS Assessment and Plan (1) Abscess of left foot Current visit: Yes Status: Acute Category: Medical Code(s): L02.612 - Cutaneous abscess of left foot (2) Anemia of chronic disease Current visit: Yes Status: Acute Category: Medical Code(s): D63.8 - Anemia in other chronic diseases classified elsewhere (3) Cellulitis Current visit: Yes Status: Acute Qualifiers: Site of cellulitis: unspecified site Qualified Code(s): L03.90 - Cellulitis , unspecified Category: Medical Code(s): L03.90 - Cellulitis, unspecified (4) Decubitus ulcer Current visit: Yes Status: Acute Qualifiers: Pressure injury location: other site Pressure injury stage: stage 1 Qualified Code(s): L89.891 - Pressure ulcer of other site, stage 1 Category: Medical Code(s): L89.90 - Pressure ulcer of unspecified site, unspecified stage (5) Morbid obesity Current visit: Yes Status: Acute Category: Medical Code(s): E66.01 - Morbid (severe) obesity due to excess calories (6) Pressure ulcer of left heel, stage 2 Current visit: Yes Status: Acute Category: Medical Code(s): L89.622 - Pressure ulcer of left heel, stage 2 (7) Pressure ulcer of right heel, stage 2 Current visit: Yes Status: Acute Category: Medical Code(s): L89.612 - Pressure ulcer of right heel, stage 2 (8) Rheumatoid arthritis Current visit: Yes Status: Acute Qualifiers: Rheumatoid arthritis location: unspecified site Rheumatoid factor presence : unspecified presence Qualified Code(s): M06.9 - Rheumatoid arthritis, unspecified Category: Medical Code(s): M06.9 - Rheumatoid arthritis, unspecified (9) Type 2 diabetes mellitus Current visit: Yes Status: Acute Category: Medical Code(s): E11.9 - Type 2 diabetes mellitus without complications - Assessment and plan all Dx Assessment and Plan for all problems:: I agree with above. Patient to be discharged tomorrow with PO abx to [place].
[2018-05-25 09:10] LABS: Folate 8.1 ng/mL (>3.0)
--- NOTE | 2018-05-26 07:33 | Progress Note ---
Internal Medicine - PN: Subj *Date: 05/26/18 *Time: 07:32 Exam Vital signs and Labs for Last 24 Hours: Temp Pulse Resp BP Pulse Ox 98.3 F 87 20 118/62 93 L 05/26/18 04:00 05/26/18 04:00 05/26/18 04:00 05/26/18 04:00 05/26/18 04:00 Laboratory Results - last 24 hr 05/23/18 06:48: Iron 22 L, TIBC 169 L, Iron Saturation 13 L, Unsaturated IBC 147 , Vitamin B12 175 L, Folate 8.1 05/25/18 11:20: POC Glucose 136 H 05/25/18 16:25: POC Glucose 116 H 05/25/18 20:19: POC Glucose 121 H I & O for Last 24 hours: Intake & Output 05/23/18 05/24/18 05/25/18 05/26/18 23:59 23:59 23:59 23:59 Intake Total 240 / 240 840 / 840 240 / 240 Output Total 1100 / 1100 Balance -860 / -860 840 / 840 240 / 240 Microbiology Reports for the Last 24 Hours: Microbiology 05/22/18 Unknown Foot,Right Gram Stain - Final 05/22/18 Unknown Foot,Right Wound Culture - Preliminary NO GROWTH AFTER 72 HOURS 05/22/18 08:06 Foot,Left Gram Stain - Final 05/22/18 08:06 Foot,Left Wound Culture - Preliminary NO GROWTH AFTER 72 HOURS 05/22/18 Unknown Foot,Left - Final Not Reportable 05/22/18 Unknown Foot,Left - Final Not Reportable 05/22/18 Unknown Foot,Left - Final Not Reportable 05/22/18 Unknown Foot,Left - Final Not Reportable 05/22/18 Unknown Foot,Left - Final Not Reportable 05/22/18 Unknown Foot,Left Gram Stain - Final 05/22/18 Unknown Foot,Left Wound Culture - Final Staphylococcus aureus Gram Positive Bacilli Assessment and Plan (1) Abscess of left foot Current visit: Yes Status: Acute Category: Medical Code(s): L02.612 - Cutaneous abscess of left foot (2) Anemia of chronic disease Current visit: Yes Status: Acute Category: Medical Code(s): D63.8 - Anemia in other chronic diseases classified elsewhere (3) Cellulitis Current visit: Yes Status: Acute Qualifiers: Site of cellulitis: unspecified site Qualified Code(s): L03.90 - Cellulitis , unspecified Category: Medical Code(s): L03.90 - Cellulitis, unspecified (4) Decubitus ulcer Current visit: Yes Status: Acute Qualifiers: Pressure injury location: other site Pressure injury stage: stage 1 Qualified Code(s): L89.891 - Pressure ulcer of other site, stage 1 Category: Medical Code(s): L89.90 - Pressure ulcer of unspecified site, unspecified stage (5) Morbid obesity Current visit: Yes Status: Acute Category: Medical Code(s): E66.01 - Morbid (severe) obesity due to excess calories (6) Pressure ulcer of left heel, stage 2 Current visit: Yes Status: Acute Category: Medical Code(s): L89.622 - Pressure ulcer of left heel, stage 2 (7) Pressure ulcer of right heel, stage 2 Current visit: Yes Status: Acute Category: Medical Code(s): L89.612 - Pressure ulcer of right heel, stage 2 (8) Rheumatoid arthritis Current visit: Yes Status: Acute Qualifiers: Rheumatoid arthritis location: unspecified site Rheumatoid factor presence : unspecified presence Qualified Code(s): M06.9 - Rheumatoid arthritis, unspecified Category: Medical Code(s): M06.9 - Rheumatoid arthritis, unspecified (9) Type 2 diabetes mellitus Current visit: Yes Status: Acute Category: Medical Code(s): E11.9 - Type 2 diabetes mellitus without complications The patient's infection will respond to the chosen ABx?: Yes Is the patient receiving the right drug, dose, and route?: Yes Could a more targeted ABx be ordered?: No
--- NOTE | 2018-05-26 08:13 | Progress Note ---
Subjective Date: 05/26/18 Time: 07:45 Principal diagnosis: B/L LE cellulitis, decubitus heel ulcers Interval history: Patient resting comfortably in bed, anxious. Denies pain to right foot and left leg. Reports pain to left heel. She is laying flat on her back, with heels on bed. PN: Obj Ex Vital signs: Temp Pulse Resp BP Pulse Ox 98.3 F 87 20 118/62 93 L 05/26/18 04:00 05/26/18 04:00 05/26/18 04:00 05/26/18 04:00 05/26/18 04:00 - Constitutional no acute distress, morbidly obese - Routine HEENT Exam Head: Present: normocephalic - Routine Respiratory Exam Absent: respiratory distress - Routine Abdominal Exam Present: soft - Routine Extremities Exam Present: edema (improving), pulses intact, normal capillary refill. Absent: calf tenderness - Detailed Lower Extremity Exam Lower leg: Left wound (lateral leg 4.5 x 2.6 x 0.2cm), Left erythema (lateral leg-resolved) Foot/Toes: Left swelling (left heel), Bilateral wound (b/l heel) Comments: Overall wounds are improved. Resolved erythema from right heel and left lateral leg. The right heel does not probe deeply and skin is starting to close. The left lateral leg wound is superficial and limited to skin breakdown with 100% granular wound bed. No fibrotic tissue or callus. Mild bessie wound erythema and edema noted to left heel. The left heel still probes deeply > 1cm, but not to bone. No new purulence, drainage, malodor or SOI. No ascending cellulitis or palpable lymph nodes. - Urinary Catheter Management Straight Cath placed during this visit: yes Urethral indwelling: Yes Reason for continuing: Not indwelling catheter Insertion date: 05/21/18 Insertion time: 19:40 Progress Note: A&P (1) Abscess of left foot Status: Acute Current Visit: Yes (2) Anemia of chronic disease Status: Acute Current Visit: Yes (3) Cellulitis Status: Acute Current Visit: Yes (4) Decubitus ulcer Status: Acute Current Visit: Yes (5) Morbid obesity Status: Acute Current Visit: Yes (6) Pressure ulcer of left heel, stage 2 Status: Acute Current Visit: Yes (7) Pressure ulcer of right heel, stage 2 Status: Acute Current Visit: Yes (8) Rheumatoid arthritis Status: Acute Current Visit: Yes (9) Type 2 diabetes mellitus Status: Acute Current Visit: Yes Assessment and Plan for All Diagnoses:: S/p b/l heel incision and drainage with debridement, left lateral leg wound debridement on 05/22/18 POD # 4 Patient was given morphine prior to dressing changes. Dressings removed from the right foot. Utilizing sterile saline flushes the wound was flushed and squeeze. There was no drainage or any signs of infection noted. No packing to the right heel. Xeroform, betadine soaked 4 x 4's, dry sterile dressing applied. Next dressings were removed from the left lower extremity. The left lateral leg ulcer looks stable will base was 100% granular. Wound 4.5 x 2.6 x 0.2 cm. Periwound erythema resolved. Xeroform, betadine soaked 4 x 4 followed by dry sterile dressing was applied to the left leg. Dressing was then removed from the left foot. Left heel incision flushed with normal sterile saline. It was palpated and squeeze, no new purulence or drainage was expressed. Sutures x 3 intact to proximal incision. Next Betadine soaked quarter inch packing was inserted into the left heel followed by xeroform , betadine soaked 4 x 4 and a dry sterile dressing. Wounds all look better. Resolved cellulitis, edema and erythema to right heel and left lateral leg. Still some pain and periwound edema noted to left heel. Plan: 1. Daily dressing changes with: a) left heel: saline flushes, betadine soaked 1/4" packing, xeroform (or adaptic ), betadine soaked 44, ABD pads, Kerlix rolls and Lj bandages b) left lateral leg: xeroform (or adaptic), betadine soaked 4x4, DSD c) right heel: xeroform (or adaptic), betadine soaked 4x4, DSD 2. Wound cultures: MSSA, GPB (Recommend po abx Clinda 300mg TID x 3 weeks) 3. Continue to offload the heels with pillows 4. NWB left lower extremity with post op shoe, PWB to right foot as tolerated in heel off loading post op shoe 5. Upon discharge will need home health care for daily packing dressing changes (see above) 6. Okay from Podiatry stand point to be discharged to SNF. 7. Follow up with wound care clinic out patient in 1-2 weeks (plan for wc to remove sutures from left heel in 2 more weeks)
--- NOTE | 2018-05-26 08:24 | Progress Note ---
Internal Medicine - PN: Subj *Date: 05/26/18 *Time: 08:22 Interval history: Patient just had her dressings changed on her feet. She is having some pain at this time after dressing change. She states she was given pain medication last night did sleep well. She is ready to eat breakfast this morning. Exam Vital signs and Labs for Last 24 Hours: Temp Pulse Resp BP Pulse Ox 98.3 F 87 20 118/62 93 L 05/26/18 04:00 05/26/18 04:00 05/26/18 04:00 05/26/18 04:00 05/26/18 04:00 Laboratory Results - last 24 hr 05/23/18 06:48: Iron 22 L, TIBC 169 L, Iron Saturation 13 L, Unsaturated IBC 147 , Vitamin B12 175 L, Folate 8.1 05/25/18 11:20: POC Glucose 136 H 05/25/18 16:25: POC Glucose 116 H 05/25/18 20:19: POC Glucose 121 H I & O for Last 24 hours: Intake & Output 05/23/18 05/24/18 05/25/18 05/26/18 11:59 11:59 11:59 11:59 Intake Total 940 / 940 360 / 360 720 / 720 Output Total 1300 / 1300 600 / 600 Balance -360 / -360 -240 / -240 720 / 720 Weight 359 lb 15.991 oz Microbiology Reports for the Last 24 Hours: Microbiology 05/22/18 Unknown Foot,Right Gram Stain - Final 05/22/18 Unknown Foot,Right Wound Culture - Preliminary 05/22/18 08:06 Foot,Left Gram Stain - Final 05/22/18 08:06 Foot,Left Wound Culture - Preliminary NO GROWTH AFTER 72 HOURS 05/22/18 Unknown Foot,Left - Final Not Reportable 05/22/18 Unknown Foot,Left - Final Not Reportable 05/22/18 Unknown Foot,Left - Final Not Reportable 05/22/18 Unknown Foot,Left - Final Not Reportable 05/22/18 Unknown Foot,Left - Final Not Reportable 05/22/18 Unknown Foot,Left Gram Stain - Final 05/22/18 Unknown Foot,Left Wound Culture - Final Staphylococcus aureus Gram Positive Bacilli - Constitutional no acute distress - *Routine Cardiovascular Exam Present: RRR - *Routine Abdominal Exam Present: soft, normoactive bowel sounds. Absent: tenderness - *Routine Extremities Exam Present: edema - *Routine Skin Exam Comments: dressings on bilateral feet Assessment and Plan (1) Abscess of left foot Current visit: Yes Status: Acute Category: Medical Code(s): L02.612 - Cutaneous abscess of left foot (2) Anemia of chronic disease Current visit: Yes Status: Acute Category: Medical Code(s): D63.8 - Anemia in other chronic diseases classified elsewhere (3) Cellulitis Current visit: Yes Status: Acute Qualifiers: Site of cellulitis: unspecified site Qualified Code(s): L03.90 - Cellulitis , unspecified Category: Medical Code(s): L03.90 - Cellulitis, unspecified (4) Decubitus ulcer Current visit: Yes Status: Acute Qualifiers: Pressure injury location: other site Pressure injury stage: stage 1 Qualified Code(s): L89.891 - Pressure ulcer of other site, stage 1 Category: Medical Code(s): L89.90 - Pressure ulcer of unspecified site, unspecified stage (5) Morbid obesity Current visit: Yes Status: Acute Category: Medical Code(s): E66.01 - Morbid (severe) obesity due to excess calories (6) Pressure ulcer of left heel, stage 2 Current visit: Yes Status: Acute Category: Medical Code(s): L89.622 - Pressure ulcer of left heel, stage 2 (7) Pressure ulcer of right heel, stage 2 Current visit: Yes Status: Acute Category: Medical Code(s): L89.612 - Pressure ulcer of right heel, stage 2 (8) Rheumatoid arthritis Current visit: Yes Status: Acute Qualifiers: Rheumatoid arthritis location: unspecified site Rheumatoid factor presence : unspecified presence Qualified Code(s): M06.9 - Rheumatoid arthritis, unspecified Category: Medical Code(s): M06.9 - Rheumatoid arthritis, unspecified (9) Type 2 diabetes mellitus Current visit: Yes Status: Acute Category: Medical Code(s): E11.9 - Type 2 diabetes mellitus without complications - Assessment and plan all Dx Assessment and Plan for all problems:: Possible discharged to a SNF for rehab today.
--- NOTE | 2018-05-26 08:28 | Discharge Summary ---
General - General Admission date:: 05/21/18 Discharge date: 05/26/18 HPI HPI: Mrs. Mosqueda is a 52 y/o female patient who presented to ED with gradual decline, generalized weakness over the past 3 weeks. She has been unable to get out of bed for the past 4 days due to extreme weakness. She has a sore on her left heel, redness on the lower extremities and multiple other sores starting on her low back. Patient is known to have rheumatoid arthritis and has been on methotrexate for a long time. Patient denies fever, and chills. Her family insisted that she come to the emergency room last evening. Hospital Course Hospital Course: The patient had x-rays of the left foot showing prominent diffuse soft tissue swelling of the foot consistent with edema and/or cellulitis. She was seen in consultation by Dr. Villar who felt she had bilateral heel pressure ulcers stage II and a possible abscess of the heel. The patient had bilateral MRIs of the feet showing diffuse ankle edema extending into the foot and a plantar calcaneal spur. Dr. Villar performed a left and right heel incision and drainage and bilateral heel debridement. She also performed a left leg ulcer debridement. She changed the dressings daily with saline flushes, betadine soaked 1/4" packing, 44, ABD pads, Kerlix rolls and Lj bandages. X-rays were taken postoperatively and showed no new signs of gas or worsening infection. She recommended the heels be offloaded with pillows and she was to be nonweightbearing to bilateral lower extremities. The patient was started on Lovenox due to nonweightbearing status. She was also started on metformin for new onset type 2 diabetes. The patient's wound culture came back positive for MSSA. Dr. Austin continued to follow the patient and change her dressings. She recommended Levaquin 500 mg daily or clindamycin 300 mg 3 times daily for 3 weeks p.o. She felt the patient was stable to be discharged to a residential facility. She will need to offload the heels with pillows. She is to be nonweightbearing to the left lower extremity with a postop shoe and partial weightbearing to the right foot as tolerated in a postop shoe. Her daily dressing changes should be as follows a) left heel: saline flushes, betadine soaked 1/4" packing, xeroform (or adaptic), betadine soaked 44, ABD pads, Kerlix rolls and Lj bandages b) left lateral leg: xeroform (or adaptic), betadine soaked 4x4, DSD c) right heel: xeroform (or adaptic), betadine soaked 4x4, DSD She will need to follow up with wound care clinic outpatient in 1-2 weeks and will need sutures removed from left heel in 2 more weeks. Objective Vital signs: Temp Pulse Resp BP Pulse Ox 98.3 F 87 20 118/62 93 L 05/26/18 04:00 05/26/18 04:00 05/26/18 04:00 05/26/18 04:00 05/26/18 04:00 Narrative: - Constitutional no acute distress, morbidly obese Comments: appears comfortable lying in bed talking with her daughter - *Routine HEENT Exam Head: Present: normocephalic Eye: Present: PERRL. Absent: conjunctival icterus, scleral injection ENT: Present: mucous membranes moist, oropharynx clear - *Routine Neck Exam Absent: lymphadenopathy, thyromegaly - *Routine Respiratory Exam Present: CTA bilaterally (A&P) - *Routine Cardiovascular Exam Present: RRR - *Routine Abdominal Exam Present: soft, normoactive bowel sounds. Absent: tenderness, guarding - *Routine Extremities Exam Present: edema (bilateral), pulses intact, normal capillary refill Comments: bilateral leg edema with scattered scabbing; bilateral heels with erythema and are boggy - *Routine Skin Exam Comments: left outer lower leg with open wound-6x2cm; erythemic and dry at present; left heel boggy - *Routine Neurological Exam Present: alert, oriented X3 Results Labs on day of discharge: Labs from last 24 hours 05/25/18 05/25/18 05/25/18 20:19 16:25 11:20 POC Glucose 121 H 116 H 136 H Iron TIBC Iron Saturation Unsaturated IBC Vitamin B12 Folate 05/23/18 06:48 POC Glucose Iron 22 L TIBC 169 L Iron Saturation 13 L Unsaturated IBC 147 Vitamin B12 175 L Folate 8.1 Preliminary micro results at discharge 05/22/18 Unknown Wound Culture - Preliminary Foot,Right 05/22/18 08:06 Wound Culture - Preliminary Foot,Left NO GROWTH AFTER 72 HOURS 05/21/18 19:15 Blood Culture - Preliminary Blood NO GROWTH AFTER 48 HOURS 05/21/18 19:15 Blood Culture - Preliminary Blood NO GROWTH AFTER 48 HOURS DS: Diagnosis - Discharge Diagnosis (1) Abscess of left foot Status: Acute (2) Anemia of chronic disease Status: Acute (3) Cellulitis Status: Acute (4) Decubitus ulcer Status: Acute (5) Morbid obesity Status: Acute (6) Pressure ulcer of left heel, stage 2 Status: Acute (7) Pressure ulcer of right heel, stage 2 Status: Acute (8) Rheumatoid arthritis Status: Acute (9) Type 2 diabetes mellitus Status: Acute Discharge Plan - Patient Discharge Instructions - Follow up Plan Follow up with: Sweta Ferro [Primary Care Provider] - Disposition: [facility] Medications: Home Medications Medication Instructions Recorded Confirmed Type Cyclobenzaprine HCl 10 mg PO Q8HP PRN 05/21/18 05/22/18 History [Cyclobenzaprine 10mg Tab] Fluoxetine HCl [Prozac] 80 mg PO DAILY 05/21/18 05/21/18 History Gabapentin [Gabapentin 800mg Tab] 1 - 2 tab PO HS 05/21/18 05/22/18 History Methotrexate Sodium/Pf 25 mg IJ WEEKLY 05/21/18 05/22/18 History [Methotrexate 50 mg/2 ml Vial] buPROPion HCl [Bupropion HCl Sr] 150 mg PO DAILY 05/21/18 05/21/18 History Amitriptyline HCl [Elavil 25mg 1 - 2 tab PO HS 05/22/18 05/22/18 History tablet] Lisinopril/Hydrochlorothiazide 1 tab PO DAILY 05/22/18 05/22/18 History [Lisinopril-Hctz 20-12.5 mg Tab] Prescriptions/Medication Reconciliation: New Bacitracin/Polymyxin B Sulfate [Polysporin Oint 30gm Tube] 1 gm TP BID #1 tube Enoxaparin Sodium [Lovenox 40mg/0.4mL syringe] 40 mg SQ DAILY 30 Days #30 syringe Metformin HCl [Metformin 500mg Tablet] 500 mg PO DAILYDM #30 tab metHOTREXate sodium [metHOTREXate 2.5mg Tablet] 2.5 mg PO DAILY #30 tab Clindamycin HCl [Cleocin HCl] 300 mg PO TID 10 Days #30 cap Gabapentin [Neurontin 400mg cap] 400 mg PO TID #90 cap Hydrocodone/Acetaminophen [Lortab 7.5/325mg tablet] 1 tab PO Q4HP PRN # 15 tab PRN Reason: Moderate Pain Continue Methotrexate Sodium/Pf [Methotrexate 50 mg/2 ml Vial] 25 mg IJ WEEKLY Fluoxetine HCl [Prozac] 80 mg PO DAILY Cyclobenzaprine HCl [Cyclobenzaprine 10mg Tab] 10 mg PO Q8HP PRN PRN Reason: Muscle Pain buPROPion HCl [Bupropion HCl Sr] 150 mg PO DAILY Lisinopril/Hydrochlorothiazide [Lisinopril-Hctz 20-12.5 mg Tab] 1 tab PO DAILY Amitriptyline HCl [Elavil 25mg tablet] 1 - 2 tab PO HS Discontinued Gabapentin [Gabapentin 800mg Tab] 1 - 2 tab PO HS
[2018-05-26 08:54] VITALS: BP 121/62
== END 2018-05-26 12:59 ==
LOC: ER 18:58 → 2ND 18:58 → OBSVTOIN 21:09 → 2ND 22:00
PROVIDERS: ADMIT Emergency Medicine; ATTEND Emergency Medicine

== ENCOUNTER 2018-06-05 13:04 | Outpatient (RCR) | payer MEDICARE, SELFPAY | END 2018-06-05 13:05 | disposition home or self-care (01) | LOC: PT 13:04 | PROVIDERS: Family Provider Family Medicine; PCP Family Medicine; Visit Provider Podiatrist | DX: L89.612 Pressure ulcer of right heel, stage 2 (principal); L89.622 Pressure ulcer of left heel, stage 2 | CPT/HCPCS: 29580; 97161; 97597 ==

== ENCOUNTER → 2018-06-22 10:20 | Outpatient (REF) | payer MEDICARE, SELFPAY ==
[2018-06-22 13:27] LABS: Basophils % 0.2 % (0.1-2.0); Eosinophils # 0.3 K/mm3 (0.0-0.4); Eosinophils % 4.6 % (0.1-12.0); Hematocrit 31.6 % (37.0-47.0); Hemoglobin 10.1 g/dL (12.2-16.2); Lymphocytes # 0.8 K/mm3 (0.7-4.5); Mean Corpuscular HGB Conc 31.8 g/dL (31.8-35.4); Mean Corpuscular Hemoglobin 26.3 pg (27.0-31.2); Mean Corpuscular Volume 82.8 fl (81-99); Mean Platelet Volume 9.8 fl (7.4-10.4); Monocytes # 0.1 K/mm3 (0.1-1.0); Monocytes % 1.9 % (1.7-9.3); Neutrophils % 80.2 % (37.0-80.0); Platelet Count 140 K/mm3 (142-424); Red Blood Count 3.82 M/mm3 (4.20-5.40); Red Cell Distribution Width 21.2 % (11.5-17.5); White Blood Count 6.3 K/mm3 (4.8-10.8)
[2018-06-22 13:37] LABS: Hemoglobin A1C 7.2 % (0.0-7.0)
[2018-06-22 14:36] LABS: Alanine Aminotransferase 13 U/L (12-78); Albumin Level 2.9 gm/dL (3.4-5.0); Albumin/Globulin Ratio 0.8 (1.1-1.8); Alkaline Phosphatase 116 U/L (46-116); Aspartate Amino Transferase 5 U/L (15-37); Bilirubin,Total 0.3 mg/dL (0.2-1.0); Blood Urea Nitrogen 15 mg/dL (7-18); Carbon Dioxide 26 mmol/L (21.0-32.0); Chloride 100 mmol/L (98-107); Cholesterol 226 mg/dL (140-200); Creatinine,Serum 0.81 mg/dL (0.55-1.02); Estimated Glomerular Filt Rate 75 ml/min (>60); Free Thyroxine Index 3.4 ug/dL (5.93-13.13); GFR (African American) 91 ML/MIN (>60); Globulin 3.8 gm/dl (1.3-3.2); Glucose 109 mg/dL (74-106); HDL Cholesterol 45 mg/dL (29-89); LDL Cholesterol 154 mg/dL (0-130); Sodium 139 mmol/L (136-145); T4 (Thyroxine) 10.6 ug/dl (4.7-13.3); Thyroid Stimulating Hormone 0.84 uIU/ml (0.358-3.740); Total Protein,Serum 6.7 gm/dL (6.4-8.2); Triglycerides 134 mg/dL (30-200); Triiodothryronine (T3) Uptake 32 % (31-39); VLDL Cholesterol 27 mg/dL (0-40)
== END ==
LOC: LAB.CARL 10:20
PROVIDERS: Visit Provider Internal Medicine Adolescent Medicine
DX: M05.79 Rheumatoid arthritis with rheumatoid factor of multiple sites without organ or systems involvement (principal); E11.69 Type 2 diabetes mellitus with other specified complication
CPT/HCPCS: 80053; 80061; 83036; 84436; 84443; 84479; 85025

== ENCOUNTER 2018-08-31 15:00 | Outpatient (RCR) | payer MEDICARE, SELFPAY ==
--- NOTE | 2018-08-22 14:22 | HMH.PTOPEV ---
PT Outpatient Evaluation Rehab PT Outpatient Evaluation Start: 08/22/18 14:10 Freq: Status: Active Protocol: Document 08/22/18 14:10 PRIMITIVO (Rec: 08/22/18 14:22 PRIMITIVO [id number]) Electronically Signed By Josh Lomax, PT 08/22/18 14:10 Outpatient Therapy Subjective History Subjective History Pt reports h/o chronic deconditioning, with hospitalization and surgery in MAY 2017 for B LE/systemic injection and drainage. Pt reports 'very little activity since I became sick in May', however, reports recent improvements in B LE strength and endurance with HHPT over the last ~2 months. Pt reports currently, severe pain with all wt. bearing activities d/t B Knee pain and swelling, and poor endurance d/t severe weakness and decreased ROM. Chief Complaint Pain Stiff Clicks Swelling Weakness Symptom Type Ache Sharp Dull Symptoms Relieved By Rest/Positioning Symptoms Aggravated By Standing Physical Activity Walking Prior Functional Limitations Lifting Housework Standing Walking Stairs Current Functional Limitations Lifting Housework Standing Walking Stairs Symptom Description Constant but Variable Level of pain today (0-10) 6 Pain scale - at its best (0-10) 4 Pain scale - at its worst (0-10) 10 Hip/Knee Eval Gait Observation General Gait Pattern Observation Antalgic Gait Wide Based Gait Shuffling Step Assistive Device Assistive Devices Wheelchair Palpation Tenderness bilateral Knee Palpation Finding Tenderness Knee Palpation Overall Comment 3/4 global jt line MMT Hip Flexion Strength Grade 4- Good- Hip Abduction Strength Grade 3- Fair- Hip Adduction Strength Grade 3- Fair- Hip Extension Strength Grade 3- Fair-
== END 2018-08-31 15:15 | disposition home or self-care (01) ==
LOC: PT 15:00
PROVIDERS: Visit Provider Physician Assistant
DX: M25.561 Pain in right knee (principal); M25.562 Pain in left knee; R53.1 Weakness
CPT/HCPCS: 97110; 97116; 97163; 97530

== ENCOUNTER → 2018-09-12 14:19 | Outpatient (CLI) | payer MEDICARE, SELFPAY ==
--- NOTE | 2018-09-12 14:21 | XR_ITS ---
XR knee LT 3V HISTORY: ITS.REASON: knee pain ORDERING PHYSICIAN: ART Brewster PATIENT AGE: 52 years COMPARISON: None FINDINGS: Severe osteoarthritic changes involve all 3 compartments of the left knee with loss of joint space, osteosclerosis, and osteophyte formation. The osteoarthritis is worse at the medial compartment and patellofemoral joint. No fracture or dislocation is evident. There is mild lateral translation of the tibia at 7 mm. IMPRESSION: Severe osteoarthritis of the left knee
--- NOTE | 2018-09-12 14:21 | XR_ITS ---
XR hip LT 2-3V w/pelvis HISTORY: ITS.REASON: hip pain ORDERING PHYSICIAN: ART Brewster PATIENT AGE: 52 years COMPARISON: None FINDINGS: No fracture or dislocation is evident. There are mild osteoarthritic changes with minimal osteophyte formation along the femoral head and slight decrease in the joint space superiorly no lytic or blastic change. IMPRESSION: Minimal osteoarthritis of the left hip
--- NOTE | 2018-09-12 14:56 | XR_ITS ---
XR knee RT 3V HISTORY: ITS.REASON: KNEE PAIN ORDERING PHYSICIAN: ART Brewster PATIENT AGE: 52 years COMPARISON: None FINDINGS: Severe osteoarthritis involves the right knee and all 3 compartments with loss of joint space, osteosclerosis, and osteophyte formation. FINDINGS are worse at the medial compartment. No fracture or dislocation. IMPRESSION: Severe osteoarthritis of the right knee
== END ==
PROVIDERS: PCP Physician Assistant; Visit Provider Physician Assistant
DX: M25.552 Pain in left hip (principal); M25.562 Pain in left knee; M25.561 Pain in right knee
CPT/HCPCS: 73502; 73562

== ENCOUNTER 2018-09-26 10:00 | Outpatient (RCR) | payer MEDICARE, SELFPAY ==
--- NOTE | 2018-08-03 10:46 | HMH.PTOPWND ---
Rehab Outpt Wound Evaluation Rehab OP Wound Evaluation Start: 08/03/18 09:55 Freq: Status: Active Protocol: Document 08/03/18 10:36 CLAU (Rec: 08/03/18 10:44 PHOGENI [id number]) Electronically Signed By Sherif Grant, PT 08/03/18 10:36 Subjective/History History History Pt is 52 yowf who presents with c/o sam LE edema x 10 yrs with insidious onset of symptoms. She reports OA in knees which has gooten increasingly worse and resulted inher immobility due to pain. This resulted in her suffering from sam heel pressure ulcers which became infected and led to cellulitis . She had I&D performed and both heels are well healed now . She reports hx of OA, RA, DM , tubal ligation, and left knee arthroscopy. Subjective Subjective She c/o painin sam knees, left worse than right. Lymphedema Eval Classification of Lymphedema Secondary Lymphedema Yes Stemmer's sign Stemmer's Sign no Stage of Lymphedema Lymphedema stages Stage II (Pitting edema, increased fibrosis w/ decreased pitting) Skin Changes Dry Skin Yes Hyperkeratosis Yes Papillomatosis Yes Redness Yes Wounds Yes Discoloration of Skin Yes Other Changes Yes Pain Scale Pain Scale (0-10) 3 Affected Extremities Areas Affected by Lymphedema/Edema Right Lower Extremity Left Lower Extremity Manual Lymphatic Drainage Treatment Area MLD Treatment Area Right Lower Extremity Left Lower Extremity Wound Problems/Impairments Impairments Problems/Impairmments Palpation Tenderness Impaired Walking Increased Edema Lymphedema Present Subjective C/O Pain Impaired Self Care/Self Management Prognosis Rehab Potential Fair Clinical Impression Consistent with Diagnosis Yes Short Term Goals Number of Weeks 4 Decreased Palpation Tenderness Yes: to min Decrease Subjective C/O Pain Yes: 12/17 Patient t
== END 2018-09-26 10:05 | disposition home or self-care (01) ==
LOC: PT 10:00
PROVIDERS: Visit Provider Podiatrist
DX: I89.0 Lymphedema, not elsewhere classified (principal)
CPT/HCPCS: 97140; 97162; 97760

== ENCOUNTER → 2018-11-15 14:57 | Outpatient (CLI) | payer MEDICARE, SELFPAY ==
[2018-11-15 15:21] LABS: Basophils % 0.2 % (0.1-2.0); Eosinophils # 0.1 K/mm3 (0.0-0.4); Eosinophils % 1.3 % (0.1-12.0); Hemoglobin 11.4 g/dL (12.2-16.2); Lymphocytes # 1.3 K/mm3 (0.7-4.5); Lymphocytes % 15.8 % (10-50); Mean Corpuscular HGB Conc 30.7 g/dL (31.8-35.4); Mean Corpuscular Volume 87.9 fl (81-99); Mean Platelet Volume 8.6 fl (7.4-10.4); Monocytes # 0.3 K/mm3 (0.1-1.0); Monocytes % 4.1 % (1.7-9.3); Neutrophils # 6.6 K/mm3 (1.8-7.8); Neutrophils % 78.7 % (37.0-80.0); Platelet Count 248 K/mm3 (142-424); Red Blood Count 4.21 M/mm3 (4.20-5.40); Red Cell Distribution Width 16.5 % (11.5-17.5); White Blood Count 8.4 K/mm3 (4.8-10.8)
[2018-11-15 15:32] LABS: Alanine Aminotransferase 15 U/L (12-78); Albumin Level 3.2 gm/dL (3.4-5.0); Albumin/Globulin Ratio 0.8 (1.1-1.8); Alkaline Phosphatase 153 U/L (46-116); Anion Gap 11.8 mEq/L (5-15); Aspartate Amino Transferase 8 U/L (15-37); Bilirubin,Total 0.3 mg/dL (0.2-1.0); Blood Urea Nitrogen 16 mg/dL (7-18); C-Reactive Protein 3.1 mg/L (0.0-0.9); Calcium 8.8 mg/dL (8.5-10.1); Carbon Dioxide 28 mmol/L (21.0-32.0); Chloride 101 mmol/L (98-107); Chol/HDL Ratio 4.3 (1-3.5); Cholesterol 198 mg/dL (140-200); Creatinine,Serum 0.87 mg/dL (0.55-1.02); Estimated Glomerular Filt Rate 69 ml/min (>60); GFR (African American) 83 ML/MIN (>60); Glucose 139 mg/dL (74-106); HDL Cholesterol 46 mg/dL (29-89); LDL Cholesterol 124 mg/dL (0-130); Potassium 3.8 mmoL/L (3.5-5.1); Sodium 137 mmol/L (136-145); T4 (Thyroxine) 9.9 ug/dl (4.7-13.3); Thyroid Stimulating Hormone 0.72 uIU/ml (0.358-3.740); Total Protein,Serum 7.2 gm/dL (6.4-8.2); Triglycerides 138 mg/dL (30-200); VLDL Cholesterol 28 mg/dL (0-40)
[2018-11-15 15:38] LABS: Hemoglobin A1C 6.6 % (0.0-7.0)
[2018-11-15 19:22] LABS: Erythrocyte Sedimentation Rate 60 mm/hr (0-30)
[2018-11-17 15:38] LABS: Anti-Centromere B Antibodies <0.2 AI (0.0-0.9); Anti-Jo-1 <0.2 AI (0.0-0.9); Anti-Smith Antibody <0.2 AI (0.0-0.9); Antichromatin Antibodies <0.2 AI (0.0-0.9); Antiscleroderma-70 Antibodies <0.2 AI (0.0-0.9); RNP Antibodies 0.2 AI (0.0-0.9); Sjogren's Anti-SS-A <0.2 AI (0.0-0.9); Sjogren's Anti-SS-B <0.2 AI (0.0-0.9)
[2018-11-17 18:05] LABS: Anti-DNA (DS) Ab Qn <1 IU/mL (0-9); Vitamin D 25 Hydroxy 11.1 ng/mL (30.0-100.0)
[2018-11-18 22:49] LABS: Anti-Cyclic Citrullinated Pept >250 units (0-19)
== END ==
PROVIDERS: Visit Provider Physician Assistant
DX: E11.9 Type 2 diabetes mellitus without complications (principal); M06.9 Rheumatoid arthritis, unspecified; R53.83 Other fatigue; E66.01 Morbid (severe) obesity due to excess calories; M25.551 Pain in right hip; M25.552 Pain in left hip
CPT/HCPCS: 80053; 80061; 82652; 83036; 84436; 84443; 85025; 85651; 86140; 86200; 86225; 86235; 86431

== ENCOUNTER → 2019-03-14 13:46 | Outpatient (CLI) | payer MEDICARE, SELFPAY ==
[2019-03-14 14:05] LABS: Basophils % 0.2 % (0.1-2.0); Eosinophils # 0.1 K/mm3 (0.0-0.4); Eosinophils % 1.2 % (0.1-12.0); Hematocrit 37.4 % (37.0-47.0); Hemoglobin 11.5 g/dL (12.2-16.2); Lymphocytes # 1.2 K/mm3 (0.7-4.5); Lymphocytes % 15.3 % (10-50); Mean Corpuscular HGB Conc 30.7 g/dL (31.8-35.4); Mean Corpuscular Hemoglobin 26.2 pg (27.0-31.2); Mean Corpuscular Volume 85.4 fl (81-99); Mean Platelet Volume 8.3 fl (7.4-10.4); Monocytes # 0.4 K/mm3 (0.1-1.0); Monocytes % 4.5 % (1.7-9.3); Neutrophils # 6.1 K/mm3 (1.8-7.8); Neutrophils % 78.7 % (37.0-80.0); Platelet Count 251 K/mm3 (142-424); Red Blood Count 4.38 M/mm3 (4.20-5.40); Red Cell Distribution Width 17.1 % (11.5-17.5); White Blood Count 7.7 K/mm3 (4.8-10.8)
[2019-03-14 14:30] LABS: Alanine Aminotransferase 16 U/L (12-78); Albumin Level 3.1 gm/dL (3.4-5.0); Albumin/Globulin Ratio 0.8 (1.1-1.8); Alkaline Phosphatase 153 U/L (46-116); Anion Gap 9.4 mEq/L (5-15); Aspartate Amino Transferase 5 U/L (15-37); Bilirubin,Total 0.3 mg/dL (0.2-1.0); Blood Urea Nitrogen 24 mg/dL (7-18); Calcium 8.7 mg/dL (8.5-10.1); Carbon Dioxide 30 mmol/L (21.0-32.0); Chloride 102 mmol/L (98-107); Chol/HDL Ratio 3.9 (1-3.5); Cholesterol 197 mg/dL (140-200); Creatinine,Serum 0.82 mg/dL (0.55-1.02); Estimated Glomerular Filt Rate 73 ml/min (>60); GFR (African American) 89 ML/MIN (>60); Glucose 144 mg/dL (74-106); HDL Cholesterol 50 mg/dL (29-89); LDL Cholesterol 129 mg/dL (0-130); Potassium 4.4 mmoL/L (3.5-5.1); Sodium 137 mmol/L (136-145); T4 (Thyroxine) 9.6 ug/dl (4.7-13.3); Thyroid Stimulating Hormone 1.35 uIU/ml (0.358-3.740); Total Protein,Serum 7.1 gm/dL (6.4-8.2); Triglycerides 92 mg/dL (30-200); VLDL Cholesterol 18 mg/dL (0-40)
[2019-03-14 15:59] LABS: Hemoglobin A1C 6.7 % (0.0-7.0)
[2019-03-16 06:22] LABS: Vitamin D 25 Hydroxy 28.5 ng/mL (30.0-100.0)
== END ==
PROVIDERS: Visit Provider Physician Assistant
DX: E11.9 Type 2 diabetes mellitus without complications (principal); E55.9 Vitamin D deficiency, unspecified; Z79.84 Long term (current) use of oral hypoglycemic drugs
CPT/HCPCS: 80053; 80061; 82652; 83036; 84436; 84443; 85025

== ENCOUNTER → 2019-06-18 13:24 | Outpatient (CLI) | payer MEDICARE, SELFPAY ==
[2019-06-18 13:55] LABS: Basophils % 0.3 % (0.1-2.0); Eosinophils # 0.2 K/mm3 (0.0-0.4); Eosinophils % 1.9 % (0.1-12.0); Hematocrit 37.6 % (37.0-47.0); Hemoglobin 11.4 g/dL (12.2-16.2); Lymphocytes # 1.3 K/mm3 (0.7-4.5); Lymphocytes % 16.7 % (10-50); Mean Corpuscular HGB Conc 30.4 g/dL (31.8-35.4); Mean Corpuscular Hemoglobin 25.8 pg (27.0-31.2); Mean Corpuscular Volume 84.8 fl (81-99); Mean Platelet Volume 8.1 fl (7.4-10.4); Monocytes # 0.3 K/mm3 (0.1-1.0); Monocytes % 4.2 % (1.7-9.3); Neutrophils # 5.9 K/mm3 (1.8-7.8); Neutrophils % 76.9 % (37.0-80.0); Platelet Count 269 K/mm3 (142-424); Red Blood Count 4.44 M/mm3 (4.20-5.40); Red Cell Distribution Width 16.3 % (11.5-17.5); White Blood Count 7.6 K/mm3 (4.8-10.8)
[2019-06-18 14:42] LABS: Alanine Aminotransferase 13 U/L (12-78); Albumin Level 3.1 gm/dL (3.4-5.0); Albumin/Globulin Ratio 0.8 (1.1-1.8); Alkaline Phosphatase 138 U/L (46-116); Anion Gap 14.1 mEq/L (5-15); Aspartate Amino Transferase 7 U/L (15-37); Bilirubin,Total 0.2 mg/dL (0.2-1.0); Blood Urea Nitrogen 22 mg/dL (7-18); Calcium 8.7 mg/dL (8.5-10.1); Carbon Dioxide 29 mmol/L (21.0-32.0); Chloride 100 mmol/L (98-107); Chol/HDL Ratio 3.8 (1-3.5); Cholesterol 175 mg/dL (140-200); Creatinine,Serum 0.92 mg/dL (0.55-1.02); Estimated Glomerular Filt Rate 64 ml/min (>60); GFR (African American) 78 ML/MIN (>60); Globulin 3.9 gm/dl (1.3-3.2); Glucose 135 mg/dL (74-106); HDL Cholesterol 46 mg/dL (29-89); LDL Cholesterol 109 mg/dL (0-130); Potassium 4.1 mmoL/L (3.5-5.1); Sodium 139 mmol/L (136-145); T4 (Thyroxine) 10.9 ug/dl (4.7-13.3); Thyroid Stimulating Hormone 1.66 uIU/ml (0.358-3.740); Triglycerides 98 mg/dL (30-200); VLDL Cholesterol 20 mg/dL (0-40)
[2019-06-19 14:27] LABS: Hemoglobin A1C 7.7 % (0.0-7.0)
[2019-06-20 09:36] LABS: Vitamin D 25 Hydroxy 35.3 ng/mL (30.0-100.0)
== END ==
PROVIDERS: Visit Provider Physician Assistant
DX: M06.9 Rheumatoid arthritis, unspecified; E66.01 Morbid (severe) obesity due to excess calories; Z68.43 Body mass index [BMI] 50.0-59.9, adult; E55.9 Vitamin D deficiency, unspecified; E11.42 Type 2 diabetes mellitus with diabetic polyneuropathy
CPT/HCPCS: 80053; 80061; 82652; 83036; 84436; 84443; 85025

== ENCOUNTER → 2021-01-13 17:45 | Outpatient (CLI) | payer MEDICARE, SELFPAY ==
[2021-01-13 18:13] LABS: Alanine Aminotransferase 14 U/L (12-78); Albumin Level 4.1 g/dl (3.5-5.0); Albumin/Globulin Ratio 1.1 (1.1-1.8); Alkaline Phosphatase 153 U/L (38-126); Anion Gap 15.4 mEq/L (5-15); Aspartate Amino Transferase 20 U/L (14-36); Basophils % 0.2 % (0.1-2.0); Bilirubin,Total 0.3 mg/dl (0.2-1.3); Blood Urea Nitrogen 17 mg/dl (7-17); Calcium 9.4 mg/dl (8.4-10.2); Carbon Dioxide 26 mmol/L (22.0-30.0); Chloride 100 mmol/L (98-107); Chol/HDL Ratio 5.1 (1-3.5); Cholesterol 214 mg/dl (140-200); Eosinophils # 0.1 K/mm3 (0.0-0.4); Eosinophils % 1.3 % (0.1-12.0); Estimated Glomerular Filt Rate 75 ml/min (>60); GFR (African American) 91 ML/MIN (>60); Globulin 3.6 g/dL (1.3-3.2); Glucose 132 mg/dl (74-100); HDL Cholesterol 42 mg/dl (40-60); Hemoglobin 11.9 g/dL (12.2-16.2); Lymphocytes # 0.9 K/mm3 (0.7-4.5); Lymphocytes % 10.4 % (10-50); Mean Corpuscular HGB Conc 31.4 g/dL (31.8-35.4); Mean Corpuscular Volume 92.5 fl (81-99); Mean Platelet Volume 8.8 fl (7.4-10.4); Monocytes # 0.3 K/mm3 (0.1-1.0); Neutrophils # 7.2 K/mm3 (1.8-7.8); Platelet Count 235 K/mm3 (142-424); Potassium 4.4 mmoL/L (3.5-5.1); Red Blood Count 4.11 M/mm3 (4.20-5.40); Sodium 137 mmol/L (136-145); Total Protein,Serum 7.7 g/dl (6.3-8.2); Triglycerides 167 mg/dl (30-150); VLDL Cholesterol 33 mg/dL (0-40); White Blood Count 8.5 K/mm3 (4.8-10.8)
[2021-01-13 18:24] LABS: Direct LDL Cholesterol 140.29 mg/dL (100-129)
[2021-01-13 18:29] LABS: T4 (Thyroxine) 10.4 ug/dl (5.53-11.0)
[2021-01-13 18:43] LABS: Thyroid Stimulating Hormone 1.87 uIU/mL (0.465-4.68)
[2021-01-13 18:45] LABS: 25-OH Vitamin D, Total < 12.8 ng/mL (30-100)
[2021-01-13 20:00] LABS: Hemoglobin A1C 6.7 % (4.0-6.0)
== END ==
PROVIDERS: Visit Provider Nurse Practitioner Family
DX: E11.9 Type 2 diabetes mellitus without complications (principal); E55.9 Vitamin D deficiency, unspecified; G89.29 Other chronic pain; I10 Essential (primary) hypertension; M54.5 Low back pain; Z79.84 Long term (current) use of oral hypoglycemic drugs
CPT/HCPCS: 80053; 80061; 82306; 83036; 84436; 84443; 85025

== ENCOUNTER → 2021-08-18 19:03 | Outpatient (CLI) | payer MEDICARE, SELFPAY ==
[2021-08-18 20:13] LABS: Basophils % 0.4 % (0.1-2.0); Eosinophils # 0.1 K/mm3 (0.0-0.4); Eosinophils % 1.7 % (0.1-12.0); Hematocrit 39.1 % (37.0-47.0); Hemoglobin 12.4 g/dL (12.2-16.2); Lymphocytes % 13.5 % (10-50); Mean Corpuscular HGB Conc 31.7 g/dL (31.8-35.4); Mean Corpuscular Hemoglobin 29.9 pg (27.0-31.2); Mean Corpuscular Volume 94.2 fl (81-99); Mean Platelet Volume 10.3 fl (7.4-10.4); Monocytes # 0.3 K/mm3 (0.1-1.0); Monocytes % 4.1 % (1.7-9.3); Neutrophils # 5.7 K/mm3 (1.8-7.8); Neutrophils % 80.3 % (37.0-80.0); Platelet Count 263 K/mm3 (142-424); Red Blood Count 4.15 M/mm3 (4.20-5.40); Red Cell Distribution Width 15.5 % (11.5-17.5); White Blood Count 7.1 K/mm3 (4.8-10.8)
[2021-08-18 21:43] LABS: Hemoglobin A1C 9.8 % (4.0-6.0)
[2021-08-18 21:48] LABS: Alanine Aminotransferase 14 U/L (12-78); Albumin Level 3.8 g/dl (3.5-5.0); Albumin/Globulin Ratio 1.2 (1.1-1.8); Alkaline Phosphatase 144 U/L (38-126); Anion Gap 11.2 mEq/L (5-15); Aspartate Amino Transferase 18 U/L (14-36); Bilirubin,Total 0.3 mg/dl (0.2-1.3); Blood Urea Nitrogen 14 mg/dl (7-17); Calcium 9.2 mg/dl (8.4-10.2); Carbon Dioxide 28 mmol/L (22.0-30.0); Chloride 100 mmol/L (98-107); Chol/HDL Ratio 5.4 (1-3.5); Cholesterol 243 mg/dl (140-200); Estimated Glomerular Filt Rate 75 ml/min (>60); GFR (African American) 91 ML/MIN (>60); Globulin 3.3 g/dL (1.3-3.2); Glucose 141 mg/dl (74-100); HDL Cholesterol 45 mg/dl (40-60); Potassium 4.2 mmoL/L (3.5-5.1); Sodium 135 mmol/L (136-145); Total Protein,Serum 7.1 g/dl (6.3-8.2); Triglycerides 170 mg/dl (30-150); VLDL Cholesterol 34 mg/dL (0-40)
[2021-08-18 21:59] LABS: Direct LDL Cholesterol 163.15 mg/dL (100-129)
[2021-08-18 22:05] LABS: 25-OH Vitamin D, Total 33.1 ng/mL (30-100); T4 (Thyroxine) 10.5 ug/dl (5.53-11.0)
[2021-08-18 22:19] LABS: Thyroid Stimulating Hormone 2.07 uIU/mL (0.465-4.68)
== END ==
PROVIDERS: Visit Provider Physician Assistant
DX: E11.9 Type 2 diabetes mellitus without complications (principal); E55.9 Vitamin D deficiency, unspecified; E66.01 Morbid (severe) obesity due to excess calories; I10 Essential (primary) hypertension; Z68.43 Body mass index [BMI] 50.0-59.9, adult; Z79.84 Long term (current) use of oral hypoglycemic drugs
CPT/HCPCS: 80053; 80061; 82306; 83036; 84436; 84443; 85025

== ENCOUNTER → 2022-02-22 09:08 | Outpatient (CLI) | payer MEDICARE, SELFPAY ==
[2022-02-22 18:51] LABS: Basophils # 0.1 K/mm3 (0-0.2); Basophils % 0.8 % (0.1-2.0); Eosinophils # 0.1 K/mm3 (0.0-0.4); Eosinophils % 1.7 % (0.1-12.0); Hemoglobin 13.3 g/dL (12.2-16.2); Lymphocytes % 14.5 % (10-50); Mean Corpuscular HGB Conc 31.7 g/dL (31.8-35.4); Mean Corpuscular Hemoglobin 31.1 pg (27.0-31.2); Mean Platelet Volume 10.1 fl (7.4-10.4); Monocytes # 0.3 K/mm3 (0.1-1.0); Monocytes % 3.8 % (1.7-9.3); Neutrophils # 5.3 K/mm3 (1.8-7.8); Neutrophils % 79.2 % (37.0-80.0); Platelet Count 200 K/mm3 (142-424); Red Blood Count 4.28 M/mm3 (4.20-5.40); Red Cell Distribution Width 17.6 % (11.5-17.5); White Blood Count 6.7 K/mm3 (4.8-10.8)
[2022-02-22 19:00] LABS: Alanine Aminotransferase 20 U/L (12-78); Albumin Level 4.2 g/dl (3.5-5.0); Albumin/Globulin Ratio 1.3 (1.1-1.8); Alkaline Phosphatase 125 U/L (38-126); Anion Gap 10.3 mEq/L (5-15); Aspartate Amino Transferase 21 U/L (14-36); Bilirubin,Total 0.4 mg/dl (0.2-1.3); Blood Urea Nitrogen 20 mg/dl (7-17); Calcium 9.7 mg/dl (8.4-10.2); Carbon Dioxide 30 mmol/L (22.0-30.0); Chloride 100 mmol/L (98-107); Cholesterol 264 mg/dl (140-200); Estimated Glomerular Filt Rate 65 ml/min (>60); GFR (African American) 79 ML/MIN (>60); Globulin 3.2 g/dL (1.3-3.2); Glucose 151 mg/dl (74-100); HDL Cholesterol 44 mg/dl (40-60); Potassium 4.3 mmoL/L (3.5-5.1); Sodium 136 mmol/L (136-145); Total Protein,Serum 7.4 g/dl (6.3-8.2); Triglycerides 232 mg/dl (30-150); VLDL Cholesterol 46 mg/dL (0-40)
[2022-02-22 19:11] LABS: Direct LDL Cholesterol 168.04 mg/dL (100-129)
[2022-02-22 19:17] LABS: 25-OH Vitamin D, Total 30.4 ng/mL (30-100)
[2022-02-22 19:31] LABS: Hemoglobin A1C 7.7 % (4.0-6.0); Thyroid Stimulating Hormone 1.91 uIU/mL (0.465-4.68)
[2022-02-22 19:50] LABS: Vitamin B12 267 pg/mL (239-931)
== END ==
PROVIDERS: Visit Provider Physician Assistant
DX: I10 Essential (primary) hypertension (principal); E11.9 Type 2 diabetes mellitus without complications; E55.9 Vitamin D deficiency, unspecified; M25.561 Pain in right knee; M25.562 Pain in left knee; Z79.84 Long term (current) use of oral hypoglycemic drugs; F17.210 Nicotine dependence, cigarettes, uncomplicated
CPT/HCPCS: 80053; 80061; 82306; 82607; 83036; 84443; 85025

== ENCOUNTER → 2022-09-13 14:16 | Outpatient (CLI) | payer MEDICARE, SELFPAY ==
[2022-09-13 17:29] LABS: Basophils % 0.3 % (0.1-2.0); Eosinophils # 0.1 K/mm3 (0.0-0.4); Eosinophils % 1.3 % (0.1-12.0); Hematocrit 40.8 % (37.0-47.0); Hemoglobin 12.5 g/dL (12.2-16.2); Lymphocytes # 1.1 K/mm3 (0.7-4.5); Lymphocytes % 11.7 % (10-50); Mean Corpuscular HGB Conc 30.8 g/dL (31.8-35.4); Mean Corpuscular Hemoglobin 27.4 pg (27.0-31.2); Mean Corpuscular Volume 89.1 fl (81-99); Mean Platelet Volume 9.7 fl (7.4-10.4); Monocytes # 0.3 K/mm3 (0.1-1.0); Monocytes % 2.8 % (1.7-9.3); Neutrophils # 7.6 K/mm3 (1.8-7.8); Neutrophils % 83.9 % (37.0-80.0); Platelet Count 233 K/mm3 (142-424); Red Blood Count 4.58 M/mm3 (4.20-5.40); Red Cell Distribution Width 14.8 % (11.5-17.5); White Blood Count 9.1 K/mm3 (4.8-10.8)
[2022-09-13 17:38] LABS: Alanine Aminotransferase 18 U/L (12-78); Albumin Level 4.3 g/dl (3.5-5.0); Albumin/Globulin Ratio 1.4 (1.1-1.8); Alkaline Phosphatase 191 U/L (38-126); Anion Gap 15.4 mEq/L (5-15); Aspartate Amino Transferase 22 U/L (14-36); Bilirubin,Total 0.3 mg/dl (0.2-1.3); Blood Urea Nitrogen 19 mg/dl (7-17); Calcium 9.6 mg/dl (8.4-10.2); Carbon Dioxide 29 mmol/L (22.0-30.0); Chloride 93 mmol/L (98-107); Chol/HDL Ratio 6.2 (1-3.5); Cholesterol 235 mg/dl (140-200); Estimated Glomerular Filt Rate 87 ml/min (>60); GFR (African American) 106 ML/MIN (>60); Globulin 3.1 g/dL (1.3-3.2); Glucose 168 mg/dl (74-100); HDL Cholesterol 38 mg/dl (40-60); Potassium 4.4 mmoL/L (3.5-5.1); Sodium 133 mmol/L (136-145); Total Protein,Serum 7.4 g/dl (6.3-8.2); Triglycerides 191 mg/dl (30-150); VLDL Cholesterol 38 mg/dL (0-40)
[2022-09-13 17:49] LABS: Direct LDL Cholesterol 161.47 mg/dL (100-129)
[2022-09-13 18:05] LABS: Hemoglobin A1C 8.1 % (4.0-6.0)
[2022-09-13 18:10] LABS: Thyroid Stimulating Hormone 1.85 uIU/mL (0.465-4.68)
== END ==
PROVIDERS: PCP Physician Assistant; Visit Provider Physician Assistant
DX: M06.9 Rheumatoid arthritis, unspecified; E55.9 Vitamin D deficiency, unspecified; I10 Essential (primary) hypertension; E11.42 Type 2 diabetes mellitus with diabetic polyneuropathy; E66.01 Morbid (severe) obesity due to excess calories; Z68.43 Body mass index [BMI] 50.0-59.9, adult; Z79.84 Long term (current) use of oral hypoglycemic drugs
CPT/HCPCS: 80053; 80061; 82306; 83036; 84443; 85025

== ENCOUNTER → 2023-08-11 14:10 | Outpatient (CLI) | payer MEDICARE, SELFPAY ==
[2023-08-11 20:19] LABS: Basophils % 0.4 % (0.1-2.0); Eosinophils # 0.2 K/mm3 (0.0-0.4); Eosinophils % 2.7 % (0.1-12.0); Hematocrit 39.1 % (37.0-47.0); Lymphocytes # 1.4 K/mm3 (0.7-4.5); Lymphocytes % 19.4 % (10-50); Mean Corpuscular HGB Conc 30.6 g/dL (31.8-35.4); Mean Corpuscular Hemoglobin 28.5 pg (27.0-31.2); Mean Corpuscular Volume 93.1 fl (81-99); Mean Platelet Volume 9.9 fl (7.4-10.4); Monocytes # 0.3 K/mm3 (0.1-1.0); Monocytes % 4.2 % (1.7-9.3); Neutrophils # 5.3 K/mm3 (1.8-7.8); Neutrophils % 73.3 % (37.0-80.0); Platelet Count 220 K/mm3 (142-424); Red Cell Distribution Width 15.7 % (11.5-17.5); White Blood Count 7.2 K/mm3 (4.8-10.8)
[2023-08-11 20:59] LABS: 25-OH Vitamin D, Total 22.1 ng/mL (30-100)
[2023-08-11 21:28] LABS: Hemoglobin A1C 6.7 % (4.0-6.0)
[2023-08-11 22:52] LABS: Alanine Aminotransferase 16 U/L (12-78); Albumin Level 3.7 g/dl (3.5-5.0); Alkaline Phosphatase 142 U/L (38-126); Anion Gap 16.4 mEq/L (5-15); Aspartate Amino Transferase 17 U/L (14-36); Bilirubin,Total 0.2 mg/dl (0.2-1.3); Blood Urea Nitrogen 22 mg/dl (7-17); Calcium 8.8 mg/dl (8.4-10.2); Carbon Dioxide 27 mmol/L (22.0-30.0); Chloride 100 mmol/L (98-107); Chol/HDL Ratio 5.8 (1-3.5); Cholesterol 225 mg/dl (140-200); Estimated Glomerular Filt Rate 65 ml/min (>60); GFR (African American) 79 ML/MIN (>60); Globulin 3.6 g/dL (1.3-3.2); Glucose 155 mg/dl (74-100); HDL Cholesterol 39 mg/dl (40-60); Potassium 4.4 mmoL/L (3.5-5.1); Sodium 139 mmol/L (136-145); Total Protein,Serum 7.3 g/dl (6.3-8.2); Triglycerides 187 mg/dl (30-150); VLDL Cholesterol 37 mg/dL (0-40)
[2023-08-11 23:03] LABS: Direct LDL Cholesterol 142.22 mg/dL (100-129)
[2023-08-11 23:23] LABS: Thyroid Stimulating Hormone 1.54 uIU/mL (0.465-4.68)
[2023-08-11 23:42] LABS: Vitamin B12 313 pg/mL (239-931)
== END ==
PROVIDERS: PCP Physician Assistant; Visit Provider Physician Assistant
DX: E11.42 Type 2 diabetes mellitus with diabetic polyneuropathy (principal); E55.9 Vitamin D deficiency, unspecified; Z79.84 Long term (current) use of oral hypoglycemic drugs; Z79.899 Other long term (current) drug therapy
CPT/HCPCS: 80053; 80061; 82306; 82607; 83036; 84443; 85025

== ENCOUNTER 2023-11-10 11:30 | Outpatient (CLI) | payer MEDICARE, SELFPAY | END 2023-11-10 23:59 | LOC: LAB.DROPOF 11-11 11:10 | PROVIDERS: PCP Physician Assistant; Visit Provider Physician Assistant | DX: N39.0 Urinary tract infection, site not specified (principal); B96.89 Other specified bacterial agents as the cause of diseases classified elsewhere | CPT/HCPCS: 87086 ==

== ENCOUNTER 2024-02-27 18:25 | Outpatient (CLI) | payer MEDICARE, SELFPAY ==
[2024-02-27 20:25] LABS: Creatinine,Urine Random 79 mg/dL (Not Estab.); Microalbumin < 6.000 mg/L (0-16.7)
== END 2024-02-27 23:59 | disposition home or self-care (01) ==
LOC: LAB.MAYS 18:26
PROVIDERS: PCP Physician Assistant; Visit Provider Physician Assistant
DX: E11.9 Type 2 diabetes mellitus without complications (principal); Z79.84 Long term (current) use of oral hypoglycemic drugs
CPT/HCPCS: 82043; 82570